=== PATIENT | male | born 1940 | race Caucasian/White ===

== ENCOUNTER 2020-04-28 13:32 | Outpatient (REF) | payer MEDICARE, SELFPAY ==
[2020-04-28 14:41] LABS: Eosinophils Absolute Auto 0.1 X10*3/uL (0.0-0.4); Eosinophils Percent Auto 0.8 % (0-4); MANUAL DIFF FLAG SCAN; PLT CLUMP 1; Red Cell Distribution Width 12.3 % (11.0-16.0); SCAN SMEAR FLAG 1
[2020-04-28 14:43] LABS: Basophils Percent Auto 0.2 % (0-2); Hemoglobin 11.1 g/dl (14.0-18.0); Imm Gran Abs Auto 0.03 X10*3/uL (0.00-0.03); Imm Gran Pct Auto 0.5 % (0.0-0.4); Lymphocytes Absolute Auto 1.5 X10*3/uL (1.2-4.9); Mean Corpuscular HGB Conc 33.6 g/dl (31.0-36.0); Mean Corpuscular Hemoglobin 33.3 pg (27.0-33.0); Mean Corpuscular Volume 99.1 fL (80-98); Mean Platelet Volume 10.6 fL (9.4-12.4); Monocytes Absolute Auto 0.8 X10*3/uL (0.1-1.2); Monocytes Percent Auto 12.5 % (2-11); Neutrophils Absolute Auto 3.7 X10*3/uL (2.0-8.3); Platelet Count 132 X10*3/uL (160-400); Red Blood Count 3.33 X10*6/uL (4.60-5.80)
[2020-04-28 15:22] LABS: Alanine Aminotransferase 24 U/L (0-40); Albumin Level 3.6 g/dL (3.5-5.0); Alkaline Phosphatase 55 U/L (39-117); Anion Gap 11 (12-20); Aspartate Amino Transferase 28 U/L (5-37); Bilirubin Total 0.5 mg/dL (0.0-1.0); Blood Urea Nitrogen 29 mg/dL (9-16); Calcium 8.5 mg/dL (8.4-10.2); Carbon Dioxide 26 mmol/L (22-29); Chloride 106 mmol/L (96-108); Estimated Glomerular Filt Rate 41; Glucose Random 93 mg/dL (60-115); Potassium 4.6 mmol/l (3.3-5.1); Sodium 138 mmol/L (135-145)
== END 2020-04-28 13:33 | disposition home or self-care (01) ==
LOC: HO.LAB 13:32
PROVIDERS: PCP Internal Medicine; Visit Provider Internal Medicine
DX: R19.7 Diarrhea, unspecified (principal)
CPT/HCPCS: 36415; 80053; 85025; 87635

== ENCOUNTER 2020-04-29 13:08 | Outpatient (REF) | payer MEDICARE, SELFPAY ==
[2020-04-29 13:50] LABS: Leukocytes Stool Qualitative NEGATIVE (NEGATIVE)
== END 2020-04-29 13:09 | disposition home or self-care (01) ==
LOC: HO.LNP 13:08
PROVIDERS: Visit Provider Internal Medicine
DX: R19.7 Diarrhea, unspecified (principal)
CPT/HCPCS: 87045; 87046; 87177; 87209; 89055

== ENCOUNTER 2020-06-22 10:27 | Outpatient (REF) | payer MEDICARE, SELFPAY ==
[2020-06-22 11:12] LABS: MANUAL DIFF FLAG NO
[2020-06-22 11:27] LABS: Basophils Percent Auto 0.3 % (0-2); Eosinophils Absolute Auto 0.1 X10*3/uL (0.0-0.4); Eosinophils Percent Auto 1.2 % (0-4); Hematocrit 27.6 % (42-52); Hemoglobin 9.5 g/dl (14.0-18.0); Imm Gran Abs Auto 0.01 X10*3/uL (0.00-0.03); Imm Gran Pct Auto 0.2 % (0.0-0.4); Lymphocytes Absolute Auto 2.4 X10*3/uL (1.2-4.9); Lymphocytes Percent Auto 40.7 % (20-40); Mean Corpuscular HGB Conc 34.4 g/dl (31.0-36.0); Mean Corpuscular Hemoglobin 31.4 pg (27.0-33.0); Mean Corpuscular Volume 91.1 fL (80-98); Mean Platelet Volume 9.7 fL (9.4-12.4); Monocytes Absolute Auto 0.8 X10*3/uL (0.1-1.2); Neutrophils Absolute Auto 2.7 X10*3/uL (2.0-8.3); Neutrophils Percent Auto 44.6 % (45-73); Platelet Count 237 X10*3/uL (160-400); Red Blood Count 3.03 X10*6/uL (4.60-5.80); Red Cell Distribution Width 13.2 % (11.0-16.0); White Blood Count 5.9 X10*3/uL (4.8-10.8)
[2020-06-22 11:55] LABS: Glucose Urine UA NEG (NEG); Leukocyte Esterase Urine NEG (NEG); Nitrite Urine NEG (NEG); Specific Gravity - Urine 1.015 (1.005-1.025); Urine Blood NEG (NEG); Urine Ketones 5 MG/DL (NEG); Urine Protein 1+ MG/DL (NEG-TRACE)
[2020-06-22 12:04] LABS: Appearance Urine CLEAR; Color Urine YELLOW
[2020-06-22 12:07] LABS: TSH reflex Free T4 4.72 mIU/mL (0.32-4.0)
[2020-06-22 12:08] LABS: Alanine Aminotransferase 30 U/L (0-40); Albumin Level 3.3 g/dL (3.5-5.0); Alkaline Phosphatase 60 U/L (39-117); Anion Gap 11 (12-20); Aspartate Amino Transferase 49 U/L (5-37); Bilirubin Total 0.5 mg/dL (0.0-1.0); Blood Urea Nitrogen 9 mg/dL (9-16); Calcium 7.9 mg/dL (8.4-10.2); Carbon Dioxide 22 mmol/L (22-29); Chloride 95 mmol/L (96-108); Cholesterol 130 mg/dL; Estimated Glomerular Filt Rate > 60; Glucose Fasting 92 mg/dL (60-99); HDL Cholesterol 31 mg/dL; LDL Cholesterol Calculated 77 mg/dl; Sodium 124 mmol/L (135-145); Total Protein 6.4 g/dL (6.5-8.0); Triglycerides 113 mg/dL
[2020-06-22 12:31] LABS: RBC Urine 0-2 /HPF (0); WBC Urine 0 /HPF (0-4)
[2020-06-22 12:32] LABS: Calcium Oxalate Crystals Urine TRACE /LPF
[2020-06-22 12:37] LABS: Folate 16.2 ng/mL (> or = 4.0); Vitamin B12 858 pg/mL (200-900)
[2020-06-22 12:39] LABS: Erythrocyte Sedimentation Rate 41 MM/HR (0-15)
[2020-06-22 12:43] LABS: Free T4 (Free Thyroxine) 0.99 ng/dL (0.71-1.85)
== END 2020-06-22 10:28 | disposition home or self-care (01) ==
LOC: HO.LAB 10:27
PROVIDERS: Visit Provider Internal Medicine
DX: E78.00 Pure hypercholesterolemia, unspecified (principal); I10 Essential (primary) hypertension; G62.9 Polyneuropathy, unspecified; I48.0 Paroxysmal atrial fibrillation; R35.0 Frequency of micturition
CPT/HCPCS: 36415; 80053; 80061; 81001; 81003; 82607; 82746; 84439; 84443; 85025; 85652

== ENCOUNTER 2020-07-20 14:06 | Outpatient (REF) | payer MEDICARE, SELFPAY ==
[2020-07-20 15:22] LABS: Basophils Percent Auto 0.4 % (0-2); Eosinophils Absolute Auto 0.2 X10*3/uL (0.0-0.4); Eosinophils Percent Auto 2.9 % (0-4); Hematocrit 28.7 % (42-52); Hemoglobin 9.7 g/dl (14.0-18.0); Imm Gran Abs Auto 0.01 X10*3/uL (0.00-0.03); Imm Gran Pct Auto 0.2 % (0.0-0.4); Lymphocytes Absolute Auto 2.5 X10*3/uL (1.2-4.9); MANUAL DIFF FLAG NO; Mean Corpuscular HGB Conc 33.8 g/dl (31.0-36.0); Mean Corpuscular Hemoglobin 30.4 pg (27.0-33.0); Mean Platelet Volume 9.4 fL (9.4-12.4); Monocytes Absolute Auto 0.7 X10*3/uL (0.1-1.2); Monocytes Percent Auto 13.2 % (2-11); Neutrophils Absolute Auto 2.2 X10*3/uL (2.0-8.3); Neutrophils Percent Auto 39.3 % (45-73); Platelet Count 238 X10*3/uL (160-400); Red Blood Count 3.19 X10*6/uL (4.60-5.80); Red Cell Distribution Width 13.2 % (11.0-16.0); White Blood Count 5.6 X10*3/uL (4.8-10.8)
[2020-07-20 15:39] LABS: Glucose Urine UA NEG (NEG); Leukocyte Esterase Urine NEG (NEG); Nitrite Urine NEG (NEG); Specific Gravity - Urine 1.015 (1.005-1.025); Urine Blood NEG (NEG); Urine Ketones 5 MG/DL (NEG); Urine Protein NEG (NEG-TRACE)
[2020-07-20 15:46] LABS: Appearance Urine CLEAR; Color Urine YELLOW
[2020-07-20 16:22] LABS: Alanine Aminotransferase 14 U/L (0-40); Albumin Level 3.7 g/dL (3.5-5.0); Alkaline Phosphatase 48 U/L (39-117); Anion Gap 12 (12-20); Aspartate Amino Transferase 24 U/L (5-37); Bilirubin Total 0.3 mg/dL (0.0-1.0); Blood Urea Nitrogen 10 mg/dL (9-16); Calcium 8.4 mg/dL (8.4-10.2); Carbon Dioxide 27 mmol/L (22-29); Chloride 96 mmol/L (96-108); Estimated Glomerular Filt Rate > 60; Glucose Random 66 mg/dL (60-115); Iron 37 mcg/dL (45-160); Percent Iron Saturation 16 % (15-50); Potassium 4.5 mmol/l (3.3-5.1); Sodium 130 mmol/L (135-145); Total Iron Binding Capacity 233 mcg/dL (228-428); Total Protein 6.5 g/dL (6.5-8.0); Unsaturated Iron Binding 196 ug/dL
[2020-07-20 16:24] LABS: Calcium 8.6 mg/dL (8.4-10.2); Magnesium 1.6 mg/dL (1.6-2.6); Phosphorus 5.3 mg/dL (2.7-4.5)
[2020-07-20 16:27] LABS: Sodium Urine Random < 20.0 mmol/L
[2020-07-20 16:44] LABS: TSH reflex Free T4 3.47 mIU/mL (0.32-4.0)
[2020-07-20 16:46] LABS: Osmolality Urine 341 mosm/kg (373-1093)
[2020-07-20 16:55] LABS: Folate 10.5 ng/mL (> or = 4.0); Vitamin B12 582 pg/mL (200-900)
== END 2020-07-20 14:07 | disposition home or self-care (01) ==
LOC: HO.LAB 14:06
PROVIDERS: Absent Provider Internal Medicine; PCP Internal Medicine; Visit Provider Internal Medicine Nephrology
DX: I13.0 Hypertensive heart and chronic kidney disease with heart failure and stage 1 through stage 4 chronic kidney disease, or unspecified chronic kidney disease (principal); N18.30 Chronic kidney disease, stage 3 unspecified; I50.22 Chronic systolic (congestive) heart failure; D63.1 Anemia in chronic kidney disease; E87.1 Hypo-osmolality and hyponatremia
CPT/HCPCS: 36415; 80053; 81003; 82310; 82607; 82746; 83540; 83735; 83935; 84100; 84300; 84443; 85025

== ENCOUNTER 2020-08-21 09:40 | Outpatient (REF) | payer MEDICARE, SELFPAY ==
[2020-08-21 10:49] LABS: Basophils Percent Auto 0.4 % (0-2); Eosinophils Absolute Auto 0.1 X10*3/uL (0.0-0.4); Eosinophils Percent Auto 2.2 % (0-4); Hematocrit 30.1 % (42-52); Hemoglobin 10.2 g/dl (14.0-18.0); Lymphocytes Absolute Auto 2.1 X10*3/uL (1.2-4.9); Lymphocytes Percent Auto 46.8 % (20-40); Mean Corpuscular HGB Conc 33.9 g/dl (31.0-36.0); Mean Corpuscular Hemoglobin 30.5 pg (27.0-33.0); Mean Corpuscular Volume 90.1 fL (80-98); Mean Platelet Volume 9.7 fL (9.4-12.4); Monocytes Absolute Auto 0.6 X10*3/uL (0.1-1.2); Monocytes Percent Auto 12.3 % (2-11); Neutrophils Absolute Auto 1.8 X10*3/uL (2.0-8.3); Neutrophils Percent Auto 38.3 % (45-73); Platelet Count 210 X10*3/uL (160-400); Red Blood Count 3.34 X10*6/uL (4.60-5.80); Red Cell Distribution Width 13.9 % (11.0-16.0); White Blood Count 4.6 X10*3/uL (4.8-10.8)
[2020-08-21 10:50] LABS: MANUAL DIFF FLAG NO
[2020-08-21 11:20] LABS: Alanine Aminotransferase 13 U/L (0-40); Albumin Level 3.8 g/dL (3.5-5.0); Alkaline Phosphatase 46 U/L (39-117); Anion Gap 12 (12-20); Aspartate Amino Transferase 22 U/L (5-37); Bilirubin Total 0.5 mg/dL (0.0-1.0); Blood Urea Nitrogen 14 mg/dL (9-16); Calcium 8.7 mg/dL (8.4-10.2); Carbon Dioxide 25 mmol/L (22-29); Chloride 100 mmol/L (96-108); Estimated Glomerular Filt Rate > 60; Glucose Random 86 mg/dL (60-115); Iron 112 mcg/dL (45-160); Percent Iron Saturation 45 % (15-50); Potassium 4.8 mmol/L (3.3-5.1); Sodium 132 mmol/L (135-145); Total Iron Binding Capacity 251 mcg/dL (228-428); Total Protein 6.5 g/dL (6.5-8.0); Unsaturated Iron Binding 139 ug/dL
[2020-08-21 11:33] LABS: Osmolality, Serum 280 mosm/kg (281-305)
== END 2020-08-21 09:41 | disposition home or self-care (01) ==
LOC: HO.LAB 09:40
PROVIDERS: PCP Internal Medicine; Visit Provider Internal Medicine
DX: D64.89 Other specified anemias (principal); E87.1 Hypo-osmolality and hyponatremia; N28.9 Disorder of kidney and ureter, unspecified
CPT/HCPCS: 36415; 80053; 83540; 83930; 85025

== ENCOUNTER → 2020-10-08 09:26 | Outpatient (CLI) | payer MEDICARE, SELFPAY | PROVIDERS: PCP Internal Medicine; Visit Provider Surgery | DX: K42.9 Umbilical hernia without obstruction or gangrene (principal); I48.0 Paroxysmal atrial fibrillation; Z79.02 Long term (current) use of antithrombotics/antiplatelets | CPT/HCPCS: 99202 ==

== ENCOUNTER 2020-10-30 10:26 | Outpatient (REF) | payer MEDICARE, SELFPAY ==
[2020-10-30 12:28] LABS: TSH reflex Free T4 3.15 uIU/mL (0.32-4.0)
[2020-10-30 12:31] LABS: Anion Gap 11 (12-20); Blood Urea Nitrogen 17 mg/dL (9-16); Calcium 8.7 mg/dL (8.4-10.2); Carbon Dioxide 26 mmol/L (22-29); Chloride 102 mmol/L (96-108); Estimated Glomerular Filt Rate > 60; Potassium 4.4 mmol/L (3.3-5.1); Sodium 135 mmol/L (135-145)
[2020-10-30 12:34] LABS: Osmolality Urine 559 mosm/kg (373-1093)
== END 2020-10-30 10:27 | disposition home or self-care (01) ==
LOC: HO.LAB 10:26
PROVIDERS: PCP Internal Medicine; Visit Provider Internal Medicine Nephrology
DX: I50.22 Chronic systolic (congestive) heart failure (principal); E87.1 Hypo-osmolality and hyponatremia
CPT/HCPCS: 36415; 80051; 82310; 82565; 83935; 84300; 84443; 84520

== ENCOUNTER 2020-11-03 07:19 | Day surgery (SDC) | payer MEDICARE, SELFPAY ==
--- NOTE | 2020-10-20 | ECG_ITS ---
Test Reason : PAF Blood Pressure : / mmHG Vent. Rate : 064 BPM Atrial Rate : 064 BPM P-R Int : 196 ms QRS Dur : 088 ms QT Int : 420 ms P-R-T Axes : 052 003 019 degrees QTc Int : 433 ms Normal sinus rhythm Possible Left atrial enlargement Septal infarct , age undetermined Abnormal ECG When compared with ECG of 12-AUG-2011 11:45, No significant change was found Referred By: Christin Perez Electronically Signed By:JOSE BAJWA
[2020-10-20 11:45] VITALS: BMI 21.7
[2020-10-20 11:50] VITALS: BP 144/70; PULSE 65; RESP 16; O2SAT 98
--- NOTE | 2020-10-20 12:03 | P.CONAN_ITS ---
Documented by User: Christin Perez 10/20/20 12:09 HPI - Anesthesia Eval Consult details Narrative: 79yo M for Umbilical hernia repair Xarelto for PAF PMFSH Active Problems Active Problems: All Active Problems (Updated 10/19/20 @ 09:11 by Radha Merida) Umbilical hernia (Acute) Chest pain of unknown etiology (Acute) Abdominal wall mass of periumbilical region (Acute) Gait instability (Acute) Postoperative intra-abdominal abscess (Acute) Hyponatremia (Acute) Anemia (Acute) Renal insufficiency (Acute) Anxiety (Acute) Frequency of urination (Acute) Benign prostatic hyperplasia with lower urinary tract symptoms (Acute) Macular degeneration, bilateral (Acute) Primary osteoarthritis of right knee (Acute) Lumbar degenerative disc disease (Acute) Neuropathy (Acute) Pure hypercholesterolemia (Acute) Benign essential hypertension (Acute) Paroxysmal atrial fibrillation (Acute) Past Medical History Medical History (Updated 11/03/20 @ 08:50 by Jennifer Wiseman) Abdominal wall mass of periumbilical region Anemia Anxiety Benign essential hypertension Benign prostatic hyperplasia with lower urinary tract symptoms Chest pain of unknown etiology Frequency of urination Gait instability Hyponatremia Lumbar degenerative disc disease Macular degeneration, bilateral Neuropathy On anticoagulant therapy Paroxysmal atrial fibrillation Postoperative intra-abdominal abscess Primary osteoarthritis of right knee Pure hypercholesterolemia Renal insufficiency SIADH (syndrome of inappropriate ADH production) Umbilical hernia Family History Family History Mother Hypertension Family history of problems with anesthesia: No Surgical History Surgical History History of appendectomy (~05/2020) History of arthroscopy of left knee (~12/2015) History of inguinal hernia repair Hx of colonoscopy Status post arthroscopic surgery of right knee (~03/2016) History of Problems with Anesthesia: No Social History Social History Are you a primary palliative care nurse practitioner to a significant other at home: No Do you presently have visiting nurse or other home services: No Alcohol intake: current Alcohol intake frequency: 3 or more drinks per day Smoking Status: Former smoker Smoking Quit Date: 50 yrs ago Second Hand Smoke Exposure: No Use of substances other than those prescribed or required for medical reasons: No Have you been hit, kicked, punched, or otherwise hurt by someone within the past year? If so, by whom?: No Advance Directives: No Advance Directives Information Provided: No Advance Directives on File: No Recently lost weight without trying: No Narrative Narrative: No recent illness. No CP/SOB with limited activity. Was going to the gym 6 days per week before appendectomy. Reports pushups daily. Meds Allergies Allergy/AdvReac Type Severity Reaction Status Date / Time atorvastatin [Lipitor] Allergy Severe face Verified 10/19/20 09:11 swelling amlodipine AdvReac Intermediate dizziness Verified 10/19/20 09:11 Pradaxa AdvReac Severe weakness, Uncoded 10/19/20 09:11 dyspnea Home Medications Medication Instructions Recorded Confirmed Last Taken Type qaibermoaiuc-tiksnsgd-fqnaal tablet 1 tab PO DAILY 04/28/20 10/20/20 Unknown History docusate sodium 100 mg capsule 100 mg PO BID PRN 07/23/20 10/20/20 Unknown History tamsulosin 0.4 mg capsule 0.4 mg PO DAILY 07/23/20 10/20/20 Unknown History torsemide 20 mg tablet 20 mg PO DAILY 07/23/20 10/20/20 Unknown History carvedilol 12.5 mg tablet 12.5 mg PO BID 10/08/20 11/03/20 11/03/20 History tjbc-bkwgy-bz4-tlq-ivh-utqd-sterols 1 cap PO DAILY 10/08/20 10/20/20 Unknown History 375 mg-100 mg-36 mg-54 mg capsule yefyoaij-ntm-pupze acid 300 1 tab PO DAILY 10/08/20 10/20/20 Unknown History mcg-lycopene 600 mcg-lutein 300 mcg tablet vitamins A,C,V-gysg-ufdlzt 14,320 1 cap PO BID 10/08/20 10/20/20 Unknown History unit-226 mg-200 unit capsule terazosin 1 cap PO BEDTIME 10/20/20 10/20/20 Unknown History Exam Exam Date and Time: October 20, 2020 1203 Height,Weight and Vital Signs: Height 5 ft 8 in Weight 64.864 kg Last Vital Signs Pulse 65 10/20/20 11:50 Resp 16 10/20/20 11:50 BP 144/70 H 10/20/20 11:50 Pulse Ox 98 10/20/20 11:50 Airway Mallampati Class: II TM Dist: >3cm Neck ROM: Full Partial: Upper Heart: RRR Lungs: CTAB Documented by User: Jennifer Wiseman 11/03/20 08:51 PMFSH Past Medical History Medical History (Updated 11/03/20 @ 08:50 by Jennifer Wiseman) Abdominal wall mass of periumbilical region Anemia Anxiety Benign essential hypertension Benign prostatic hyperplasia with lower urinary tract symptoms Chest pain of unknown etiology Frequency of urination Gait instability Hyponatremia Lumbar degenerative disc disease Macular degeneration, bilateral Neuropathy On anticoagulant therapy Paroxysmal atrial fibrillation Postoperative intra-abdominal abscess Primary osteoarthritis of right knee Pure hypercholesterolemia Renal insufficiency SIADH (syndrome of inappropriate ADH production) Umbilical hernia Family History Family History Mother Hypertension Family history of problems with anesthesia: No Surgical History Surgical History History of appendectomy (~05/2020) History of arthroscopy of left knee (~12/2015) History of inguinal hernia repair Hx of colonoscopy Status post arthroscopic surgery of right knee (~03/2016) History of Problems with Anesthesia: No Social History Social History Are you a primary palliative care nurse practitioner to a significant other at home: No Do you presently have visiting nurse or other home services: No Alcohol intake: current Alcohol intake frequency: 3 or more drinks per day Smoking Status: Former smoker Smoking Quit Date: 50 yrs ago Second Hand Smoke Exposure: No Use of substances other than those prescribed or required for medical reasons: No Have you been hit, kicked, punched, or otherwise hurt by someone within the past year? If so, by whom?: No Advance Directives: No Advance Directives Information Provided: No Advance Directives on File: No Recently lost weight without trying: No Meds Allergies Allergy/AdvReac Type Severity Reaction Status Date / Time atorvastatin [Lipitor] Allergy Severe face Verified 10/19/20 09:11 swelling amlodipine AdvReac Intermediate dizziness Verified 10/19/20 09:11 Pradaxa AdvReac Severe weakness, Uncoded 10/19/20 09:11 dyspnea Home Medications Medication Instructions Recorded Confirmed Last Taken Type ncdwnchlgkoo-czrqpzzn-mgabkl tablet 1 tab PO DAILY 04/28/20 10/20/20 Unknown History docusate sodium 100 mg capsule 100 mg PO BID PRN 07/23/20 10/20/20 Unknown History tamsulosin 0.4 mg capsule 0.4 mg PO DAILY 07/23/20 10/20/20 Unknown History torsemide 20 mg tablet 20 mg PO DAILY 07/23/20 10/20/20 Unknown History carvedilol 12.5 mg tablet 12.5 mg PO BID 10/08/20 11/03/20 11/03/20 History nhzz-ynels-rc1-krd-hxs-vmji-sterols 1 cap PO DAILY 10/08/20 10/20/20 Unknown History 375 mg-100 mg-36 mg-54 mg capsule bzomwkza-yqb-tqulk acid 300 1 tab PO DAILY 10/08/20 10/20/20 Unknown History mcg-lycopene 600 mcg-lutein 300 mcg tablet vitamins A,C,T-ebsg-ynrfql 14,320 1 cap PO BID 10/08/20 10/20/20 Unknown History unit-226 mg-200 unit capsule terazosin 1 cap PO BEDTIME 10/20/20 10/20/20 Unknown History Exam Height,Weight and Vital Signs: Vital Signs Temp Pulse Resp BP Pulse Ox 11/03/20 08:17 98.4 F 67 16 160/82 H 99 Pertinent Lab Results Pertinent Lab Results: Lab Results 10/20/20 10/20/20 10/20/20 Range/Units 12:32 12:32 12:32 WBC 4.0 L (4.8-10.8) X10*3/uL RBC 3.51 L (4.60-5.80) X10*6/uL Hgb 10.8 L (14.0-18.0) g/dl Hct 31.8 L (42-52) % MCV 90.6 (80-98) fL MCH 30.8 (27.0-33.0) pg MCHC 34.0 (31.0-36.0) g/dl RDW 12.6 (11.0-16.0) % Plt Count 157 L D (160-400) X10*3/uL MPV 9.5 (9.4-12.4) fL Immature Gran % (Auto) 0.0 (0.0-0.4) % Neut % (Auto) 39.6 L (45-73) % Lymph % (Auto) 37.5 (20-40) % Holmes % (Auto) 18.6 H (2-11) % Eos % (Auto) 3.8 (0-4) % Baso % (Auto) 0.5 (0-2) % Lymph # (Auto) 1.5 (1.2-4.9) X10*3/uL Holmes # (Auto) 0.7 (0.1-1.2) X10*3/uL Eos # (Auto) 0.2 (0.0-0.4) X10*3/uL Baso # (Auto) 0.0 (0.0-0.2) X10*3/uL Abs Immat Gran (auto) 0.00 (0.00-0.03) X10*3/uL Absolute Neuts (auto) 1.6 L (2.0-8.3) X10*3/uL Absolute Nucleated RBC 0.000 (0.0-0.012) X10*3/uL Nucleated RBC % (auto) 0.0 (0.0-0.2) /100WBC Sodium Cancelled 125 L Potassium Cancelled 4.5 Chloride Cancelled 94 L Carbon Dioxide Cancelled 26 Anion Gap Cancelled 10 L BUN 13 (9-16) mg/dL Creatinine 1.03 (0.5-1.4) mg/dL Estim Creat Clear Calc 52.4 Estimated GFR > 60 Fasting Glucose 83 (60-99) mg/dL Calcium 9.0 (8.4-10.2) mg/dL Iron 65 (45-160) mcg/dL TIBC 273 (228-428) mcg/dL % Saturation 24 (15-50) % Unsat Iron Binding 208 ug/dL Total Bilirubin 0.7 (0.0-1.0) mg/dL AST 25 (5-37) U/L ALT 14 (0-40) U/L Alkaline Phosphatase 54 (39-117) U/L Total Protein 6.7 (6.5-8.0) g/dL Albumin 3.8 (3.5-5.0) g/dL Triglycerides 60 mg/dL Cholesterol 114 mg/dL LDL Cholesterol, Calc 50 mg/dl HDL Cholesterol 52 D mg/dL Prostate Specific Ag 0.85 (<0.05-4.0) ng/mL TSH 3.30 (0.32-4.0) uIU/mL 10/30/20: Na 135 K 4.4 Cl 102 HC03 24 Anion gap 11 BUN 17 Cr 1.13 Airway Mallampati Class: II TM Dist: >3cm Neck ROM: Full Partial: Upper Heart: RRR Lungs: CTAB Assessment and Plan Assessment Anesthesia Assessment: Anesthesia Plan Discussed and Chart Reviewed Final Anesthetic Review NPO: Yes ASA Class: III Final Preanesthetic Review: No Changes in Pt Med Stat, Meds/Allgs Chart Reviewed, Consent Obtained/Reviewed and Anes Risks/Benef Reviewed Patient Risk: Intermediate Procedure Risk: Low Assessment/Block/Sedation in SS: Assess/Block/Sedation-SS Anesthetic Plan Anesthetic Plan: GA Disposition: Standard PACU
[2020-10-20 12:57] LABS: MANUAL DIFF FLAG NO
[2020-10-20 13:05] LABS: Basophils Percent Auto 0.5 % (0-2); Eosinophils Absolute Auto 0.2 X10*3/uL (0.0-0.4); Eosinophils Percent Auto 3.8 % (0-4); Hematocrit 31.8 % (42-52); Hemoglobin 10.8 g/dl (14.0-18.0); Lymphocytes Absolute Auto 1.5 X10*3/uL (1.2-4.9); Lymphocytes Percent Auto 37.5 % (20-40); Mean Corpuscular Hemoglobin 30.8 pg (27.0-33.0); Mean Corpuscular Volume 90.6 fL (80-98); Mean Platelet Volume 9.5 fL (9.4-12.4); Monocytes Absolute Auto 0.7 X10*3/uL (0.1-1.2); Monocytes Percent Auto 18.6 % (2-11); Neutrophils Absolute Auto 1.6 X10*3/uL (2.0-8.3); Neutrophils Percent Auto 39.6 % (45-73); Platelet Count 157 X10*3/uL (160-400); Red Blood Count 3.51 X10*6/uL (4.60-5.80); Red Cell Distribution Width 12.6 % (11.0-16.0)
[2020-10-20 13:26] LABS: Alanine Aminotransferase 14 U/L (0-40); Albumin Level 3.8 g/dL (3.5-5.0); Alkaline Phosphatase 54 U/L (39-117); Anion Gap 10 (12-20); Aspartate Amino Transferase 25 U/L (5-37); Bilirubin Total 0.7 mg/dL (0.0-1.0); Blood Urea Nitrogen 13 mg/dL (9-16); Carbon Dioxide 26 mmol/L (22-29); Chloride 94 mmol/L (96-108); Cholesterol 114 mg/dL; Creatinine Clr Calc Pharmacy 52.4; Estimated Glomerular Filt Rate > 60; Glucose Fasting 83 mg/dL (60-99); HDL Cholesterol 52 mg/dL; Iron 65 mcg/dL (45-160); LDL Cholesterol Calculated 50 mg/dl; Percent Iron Saturation 24 % (15-50); Potassium 4.5 mmol/L (3.3-5.1); Sodium 125 mmol/L (135-145); Total Iron Binding Capacity 273 mcg/dL (228-428); Total Protein 6.7 g/dL (6.5-8.0); Triglycerides 60 mg/dL; Unsaturated Iron Binding 208 ug/dL
[2020-10-20 13:44] LABS: Prostate Specific Antigen 0.85 ng/mL (<0.05-4.0)
[2020-11-03 08:17] VITALS: BP 160/82; PULSE 67; RESP 16; TEMP 36.9; O2SAT 99
[2020-11-03] MEDS: Lactated Ringers 1,000 ML 100 ML IVCONT (08:30)
--- NOTE | 2020-11-03 08:56 | MHC.SHP ---
Pre-Procedural Eval Section B Chief Complaint: Umbilical hernia Allergies: Allergies Allergy/AdvReac Type Severity Reaction Status Date / Time atorvastatin [Lipitor] Allergy Severe face Verified 10/19/20 09:11 swelling amlodipine AdvReac Intermediate dizziness Verified 10/19/20 09:11 Pradaxa AdvReac Severe weakness, Uncoded 10/19/20 09:11 dyspnea Plan I have reviewed the history and physical and performed a pertinent physical examination on my patient. No changes have occurred unless specified.
--- NOTE | 2020-11-03 09:59 | P.OP_ITS ---
Operative Note Operative Note Date of Service: 11/03/20 Narrative: Preop diagnosis: Umbilical hernia Postop diagnosis: Umbilical hernia Procedure: Repair of umbilical hernia Surgeon: Salma Sweeney MD operations administrative assistant: None The patient is an 80-year-old male with note of an umbilical hernia, reducible on the umbilicus just at the supraumbilical margin. In view of symptoms, he wanted to proceed with repair. He understood technique of repair as well as the associated risks, benefits and alternatives. He was brought to the operating room placed supine on the table under general anesthesia via laryngeal mask airway. The abdomen was prepped and draped in the usual sterile fashion. A surgical time-out was done. The patient received cefazolin 2 g IV preoperatively. I made a short incision at the supraumbilical margin using a blade 15 and this was carried down through the full-thickness of skin and subcutaneous fat with electrocautery. The hernia was immediately seen as the patient had a very thin amount of subcutaneous fat. I sharply dissected the hernia to define the fascial edges. I was able to define the fascial defect which was about 1.5 cm in diameter. There were no adhesions around this and the margins were clear. I then placed 2 ydfknf-nu-xkzbi Maxon -1 sutures to close the fascial defect. I then irrigated the area. I then reapposed the subcutaneous layer with Dexon 3-0 interrupted sutures. Skin closure was achieved with Dexon 4-0 subcuticular sutures. I infiltrated the area with Marcaine 0.5% for postop analgesia Steri-Strips and dressings were applied The procedure was then completed The patient tolerated procedure well. There were no complication noted. Initial and final counts of sponges and instruments were correct. Estimated blood loss was 1 cc. The patient was extubated without difficulty and transferred to the recovery room with stable vital signs.
[2020-11-03 10:05] VITALS: BP 115/58; PULSE 58; RESP 12; TEMP 36.7; O2SAT 100
--- NOTE | 2020-11-03 10:05 | PM.OP ---
Brief Operative Note Date of Service: 11/03/20 Pre-op diagnosis: Umbilical hernia Post-op diagnosis: same Procedure: Repair of umbilical hernia Surgeon: Cody Sweeney MD Anesthesia: GLMA Estimated blood loss (mL): 1 Pathology: none sent Condition: stable Disposition: PACU
[2020-11-03 10:10] VITALS: BP 121/63; PULSE 58; RESP 12; O2SAT 100
[2020-11-03 10:15] VITALS: BP 126/63; PULSE 58; RESP 12; O2SAT 100
[2020-11-03 10:20] VITALS: BP 139/77; PULSE 65; RESP 16; O2SAT 99
[2020-11-03 10:35] VITALS: BP 157/76; PULSE 64; RESP 16; TEMP 36.7; O2SAT 99
== END 2020-11-03 11:05 | disposition home or self-care (01) ==
PROVIDERS: PCP Internal Medicine; Visit Provider Surgery
PROC: (CPT 49585; principal; 2020-11-03 09:10)
DX: K42.9 Umbilical hernia without obstruction or gangrene (principal); I48.0 Paroxysmal atrial fibrillation; Z79.01 Long term (current) use of anticoagulants; I10 Essential (primary) hypertension; R26.9 Unspecified abnormalities of gait and mobility; G62.9 Polyneuropathy, unspecified; N28.9 Disorder of kidney and ureter, unspecified; E22.2 Syndrome of inappropriate secretion of antidiuretic hormone; Z79.899 Other long term (current) drug therapy; Z87.891 Personal history of nicotine dependence; Z88.8 Allergy status to other drugs, medicaments and biological substances
CPT/HCPCS: 49585; 36415; 80051; 80053; 80061; 83540; 84153; 84443; 85025; 93005; J0690; J1100; J2405; J3010

== ENCOUNTER → 2020-11-16 13:03 | Outpatient (BNVA) | payer MEDICARE, SELFPAY | PROVIDERS: PCP Internal Medicine; Visit Provider Surgery | DX: Z48.815 Encounter for surgical aftercare following surgery on the digestive system (principal); Z87.19 Personal history of other diseases of the digestive system | CPT/HCPCS: 99212 ==

== ENCOUNTER 2020-11-23 14:49 | Outpatient (REF) | payer MEDICARE, SELFPAY ==
[2020-11-23 15:58] LABS: Anion Gap 12 (12-20); Blood Urea Nitrogen 21 mg/dL (9-16); Calcium 8.8 mg/dL (8.4-10.2); Carbon Dioxide 25 mmol/L (22-29); Chloride 108 mmol/L (96-108); Estimated Glomerular Filt Rate 53; Phosphorus 3.8 mg/dL (2.7-4.5); Potassium 4.7 mmol/L (3.3-5.1); Sodium 140 mmol/L (135-145)
== END 2020-11-23 14:50 | disposition home or self-care (01) ==
LOC: HO.LAB 14:49
PROVIDERS: PCP Internal Medicine; Visit Provider Internal Medicine Nephrology
DX: E87.1 Hypo-osmolality and hyponatremia (principal); I12.9 Hypertensive chronic kidney disease with stage 1 through stage 4 chronic kidney disease, or unspecified chronic kidney disease; N18.9 Chronic kidney disease, unspecified
CPT/HCPCS: 36415; 80051; 82310; 82565; 84100; 84520

== ENCOUNTER 2021-02-22 10:14 | Outpatient (REF) | payer MEDICARE, SELFPAY ==
[2021-02-22 13:00] LABS: MANUAL DIFF FLAG NO
[2021-02-22 13:10] LABS: Glucose Urine UA NEG (NEG); Leukocyte Esterase Urine NEG (NEG); Nitrite Urine NEG (NEG); Urine Blood NEG (NEG); Urine Ketones NEG (NEG); Urine Protein TRACE MG/DL (NEG-TRACE)
[2021-02-22 13:12] LABS: Appearance Urine CLEAR; Color Urine YELLOW
[2021-02-22 13:16] LABS: Basophils Percent Auto 0.5 % (0-2); Eosinophils Absolute Auto 0.2 X10*3/uL (0.0-0.4); Eosinophils Percent Auto 4.3 % (0-4); Hematocrit 38.4 % (42-52); Hemoglobin 12.8 g/dl (14.0-18.0); Imm Gran Abs Auto 0.01 X10*3/uL (0.00-0.03); Imm Gran Pct Auto 0.2 % (0.0-0.4); Lymphocytes Absolute Auto 2.4 X10*3/uL (1.2-4.9); Lymphocytes Percent Auto 42.9 % (20-40); Mean Corpuscular HGB Conc 33.3 g/dl (31.0-36.0); Mean Corpuscular Hemoglobin 31.4 pg (27.0-33.0); Mean Corpuscular Volume 94.3 fL (80-98); Mean Platelet Volume 10.4 fL (9.4-12.4); Monocytes Absolute Auto 0.7 X10*3/uL (0.1-1.2); Monocytes Percent Auto 11.8 % (2-11); Neutrophils Absolute Auto 2.2 X10*3/uL (2.0-8.3); Neutrophils Percent Auto 40.3 % (45-73); Platelet Count 161 X10*3/uL (160-400); Red Blood Count 4.07 X10*6/uL (4.60-5.80); Red Cell Distribution Width 13.1 % (11.0-16.0); White Blood Count 5.5 X10*3/uL (4.8-10.8)
[2021-02-22 13:43] LABS: Alanine Aminotransferase 113 U/L (0-40); Alkaline Phosphatase 57 U/L (39-117); Anion Gap 12 (12-20); Aspartate Amino Transferase 151 U/L (5-37); Bilirubin Total 0.9 mg/dL (0.0-1.0); Blood Urea Nitrogen 15 mg/dL (9-16); Carbon Dioxide 26 mmol/L (22-29); Chloride 106 mmol/L (96-108); Cholesterol 144 mg/dL; Estimated Glomerular Filt Rate > 60; Glucose Fasting 76 mg/dL (60-99); HDL Cholesterol 53 mg/dL; LDL Cholesterol Calculated 78 mg/dl; Potassium 4.3 mmol/L (3.3-5.1); Sodium 140 mmol/L (135-145); Total Protein 7.4 g/dL (6.5-8.0); Triglycerides 68 mg/dL
[2021-02-22 14:05] LABS: TSH reflex Free T4 3.52 uIU/mL (0.32-4.0)
== END 2021-02-22 10:15 | disposition home or self-care (01) ==
LOC: HO.LAB 10:14
PROVIDERS: PCP Internal Medicine; Visit Provider Internal Medicine
DX: I10 Essential (primary) hypertension (principal); D64.89 Other specified anemias; N28.9 Disorder of kidney and ureter, unspecified; E78.00 Pure hypercholesterolemia, unspecified; I48.0 Paroxysmal atrial fibrillation; N40.1 Benign prostatic hyperplasia with lower urinary tract symptoms; R35.0 Frequency of micturition
CPT/HCPCS: 36415; 80053; 80061; 81003; 84443; 85025

== ENCOUNTER 2021-03-19 10:19 | Outpatient (REF) | payer MEDICARE, SELFPAY ==
[2021-03-19 12:16] LABS: Alanine Aminotransferase 174 U/L (0-40); Albumin Level 3.9 g/dL (3.5-5.0); Alkaline Phosphatase 60 U/L (39-117); Anion Gap 11 (12-20); Aspartate Amino Transferase 290 U/L (5-37); Bilirubin Total 0.7 mg/dL (0.0-1.0); Blood Urea Nitrogen 13 mg/dL (9-16); Calcium 9.3 mg/dL (8.4-10.2); Carbon Dioxide 27 mmol/L (22-29); Chloride 106 mmol/L (96-108); Estimated Glomerular Filt Rate > 60; Glucose Fasting 77 mg/dL (60-99); Potassium 4.4 mmol/L (3.3-5.1); Sodium 140 mmol/L (135-145); Total Protein 7.4 g/dL (6.5-8.0)
== END 2021-03-19 10:20 | disposition home or self-care (01) ==
LOC: HO.LAB 10:19
PROVIDERS: PCP Internal Medicine; Visit Provider Internal Medicine
DX: E78.00 Pure hypercholesterolemia, unspecified (principal); R74.01 Elevation of levels of liver transaminase levels
CPT/HCPCS: 36415; 80053

== ENCOUNTER → 2021-04-28 11:37 | Outpatient (BNVA) | payer MEDICARE, SELFPAY | PROVIDERS: PCP Internal Medicine; Referring Provider Internal Medicine; Visit Provider Surgery | DX: K43.9 Ventral hernia without obstruction or gangrene (principal) | CPT/HCPCS: 99212 ==

== ENCOUNTER 2021-05-21 09:50 | Outpatient (REF) | payer MEDICARE, SELFPAY ==
[2021-05-21 10:03] LABS: MANUAL DIFF FLAG NO
[2021-05-21 10:14] LABS: Basophils Percent Auto 0.6 % (0-2); Eosinophils Absolute Auto 0.3 X10*3/uL (0.0-0.4); Eosinophils Percent Auto 4.8 % (0-4); Hemoglobin 13.3 g/dl (14.0-18.0); Imm Gran Abs Auto 0.01 X10*3/uL (0.00-0.03); Imm Gran Pct Auto 0.2 % (0.0-0.4); Lymphocytes Absolute Auto 2.8 X10*3/uL (1.2-4.9); Lymphocytes Percent Auto 52.1 % (20-40); Mean Corpuscular HGB Conc 34.1 g/dl (31.0-36.0); Mean Corpuscular Volume 93.8 fL (80.0-98.0); Mean Platelet Volume 9.4 fL (9.4-12.4); Monocytes Absolute Auto 0.7 X10*3/uL (0.1-1.2); Monocytes Percent Auto 12.4 % (2-11); Neutrophils Absolute Auto 1.6 x10*3/uL (2.0-8.3); Neutrophils Percent Auto 29.9 % (45-73); Platelet Count 163 X10*3/uL (160-400); Red Blood Count 4.16 X10*6/uL (4.60-5.80); Red Cell Distribution Width 13.3 % (11.0-16.0); White Blood Count 5.4 X10*3/uL (4.8-10.8)
[2021-05-21 10:44] LABS: Alanine Aminotransferase 130 U/L (0-40); Albumin Level 3.7 g/dL (3.5-5.0); Alkaline Phosphatase 71 U/L (39-117); Anion Gap 9 (12-20); Aspartate Amino Transferase 164 U/L (5-37); Bilirubin Total 0.9 mg/dL (0.0-1.0); Blood Urea Nitrogen 13 mg/dL (9-16); Calcium 8.9 mg/dL (8.4-10.2); Carbon Dioxide 29 mmol/L (22-29); Chloride 102 mmol/L (96-108); Cholesterol 182 mg/dL; Estimated Glomerular Filt Rate > 60; Glucose Fasting 91 mg/dL (60-99); HDL Cholesterol 52 mg/dL; LDL Cholesterol Calculated 110 mg/dl; Potassium 4.1 mmol/L (3.3-5.1); Sodium 136 mmol/L (135-145); Total Protein 7.5 g/dL (6.5-8.0); Triglycerides 104 mg/dL
[2021-05-21 10:59] LABS: TSH reflex Free T4 2.91 uIU/mL (0.32-4.0); Vitamin D 25-OH Total 42.1 ng/mL (>30)
[2021-05-21 11:48] LABS: Appearance Urine CLEAR; Color Urine YELLOW; Glucose Urine UA NEG (NEG); Leukocyte Esterase Urine 2+ (NEG); Nitrite Urine NEG (NEG); PH 6.5 (5.0-8.0); UACC Culture Trigger YES; Urine Blood TRACE (NEG); Urine Ketones 5 MG/DL (NEG); Urine Protein TRACE MG/DL (NEG-TRACE)
[2021-05-21 12:03] LABS: Bacteria Urine TRACE /LPF; RBC Urine 0-2 /HPF (0); Squamous Epithelial Cell Urine TRACE /LPF
== END 2021-05-21 09:51 | disposition home or self-care (01) ==
LOC: HO.LAB 09:50
PROVIDERS: PCP Internal Medicine; Visit Provider Internal Medicine
DX: E78.00 Pure hypercholesterolemia, unspecified (principal); I10 Essential (primary) hypertension; D64.89 Other specified anemias; E55.9 Vitamin D deficiency, unspecified
CPT/HCPCS: 36415; 80053; 80061; 81001; 82306; 84443; 85025; 87086

== ENCOUNTER 2021-06-08 06:02 | Day surgery (SDC) | payer MEDICARE, SELFPAY ==
[2021-06-01 13:18] VITALS: BMI 21.4
--- NOTE | 2021-06-07 10:26 | P.CONAN_ITS ---
Documented by User: Christin Perez NP 06/07/21 10:28 HPI - Anesthesia Eval Consult details Narrative: 80yo M for Supraumbilical Hernia Repair s/p same 10/2020 with GA-LMA 5 Xarelto for PAF PMFSH Active Problems Active Problems: All Active Problems (Updated 06/01/21 @ 09:42 by Daniel Lehman MD) Bronchitis (Acute) Transaminitis (Acute) Elevated LFTs (Acute) Supraumbilical hernia (Acute) Umbilical hernia (Acute) SIADH (syndrome of inappropriate ADH production) (Acute) Umbilical hernia (Acute) Chest pain of unknown etiology (Acute) Abdominal wall mass of periumbilical region (Acute) Gait instability (Acute) Postoperative intra-abdominal abscess (Acute) Hyponatremia (Acute) Anemia (Acute) Renal insufficiency (Acute) Anxiety (Acute) Frequency of urination (Acute) Benign prostatic hyperplasia with lower urinary tract symptoms (Acute) Macular degeneration, bilateral (Acute) Primary osteoarthritis of right knee (Acute) Lumbar degenerative disc disease (Acute) Neuropathy (Acute) Pure hypercholesterolemia (Acute) Benign essential hypertension (Acute) Paroxysmal atrial fibrillation (Acute) Past Medical History Medical History Abdominal wall mass of periumbilical region Anemia Anxiety Benign essential hypertension Benign prostatic hyperplasia with lower urinary tract symptoms Chest pain of unknown etiology Elevated LFTs Frequency of urination Gait instability Hyponatremia Lumbar degenerative disc disease Macular degeneration, bilateral Neuropathy On anticoagulant therapy Paroxysmal atrial fibrillation Postoperative intra-abdominal abscess Primary osteoarthritis of right knee Pure hypercholesterolemia Renal insufficiency SIADH (syndrome of inappropriate ADH production) Supraumbilical hernia Umbilical hernia Umbilical hernia Family History Family History Mother Hypertension Family history of problems with anesthesia: No Surgical History Surgical History H/O umbilical hernia repair History of appendectomy (~05/2020) History of arthroscopy of left knee (~12/2015) History of inguinal hernia repair Hx of colonoscopy Status post arthroscopic surgery of right knee (~03/2016) History of Problems with Anesthesia: No Social History Social History Housing: House Are you a primary critical care unit manager to a significant other at home: No Do you presently have visiting nurse or other home services: No Alcohol intake: current Alcohol intake frequency: 0-2 drinks per day Alcohol type: wine Patient Tobacco Use Status: Former Tobacco user Quit Date: Second Hand Smoke Exposure: Yes Use of substances other than those prescribed or required for medical reasons: No Are you DNR?: No Advance Directives: No Advance Directives Information Provided: Yes Advance Directives on File: No service: Yes Current occupational status: retired Meds Allergies Allergy/AdvReac Type Severity Reaction Status Date / Time atorvastatin [Lipitor] Allergy Severe face Verified 06/08/21 06:37 swelling amlodipine AdvReac Intermediate dizziness Verified 06/08/21 06:37 Pradaxa AdvReac Severe weakness, Uncoded 06/01/21 09:28 dyspnea Home Medications Medication Instructions Recorded Confirmed Last Taken Type docusate sodium 100 mg capsule 100 mg PO BID PRN 07/23/20 06/01/21 Unknown History torsemide 20 mg tablet 20 mg PO DAILY 07/23/20 06/01/21 Unknown History xgga-iobtz-pu5-has-jau-wcre-sterols 1 cap PO DAILY 10/08/20 06/01/21 Unknown History 375 mg-100 mg-36 mg-54 mg capsule (Glucosamine Chondroitin PLUS) tamsulosin 0.4 mg capsule 0.8 mg PO BEDTIME cap 11/24/20 06/01/21 Unknown History vit C 250 mg-vit E 90 mg-zinc 40 1 tab PO DAILY 06/01/21 06/01/21 Unknown History mg-copper 1 ox-opnpcf-exlnsn capsule (PreserVision AREDS-2) Exam Exam Date and Time: June 07, 2021 1026 Height,Weight and Vital Signs: Height 5 ft 8 in Weight 63.957 kg Pertinent Lab Results Pertinent Lab Results: Laboratory Tests 05/21/21 05/21/21 10:00 10:00 WBC 5.4 Hgb 13.3 L Hct 39.0 L Plt Count 163 Sodium 136 Potassium 4.1 Chloride 102 Carbon Dioxide 29 BUN 13 Creatinine 1.13 Narrative Narrative: EKG 10/2020 Vent. Rate : 064 BPM ? ? Atrial Rate : 064 BPM ?? P-R Int : 196 ms? QRS Dur : 088 ms ? ? QT Int : 420 ms ? ? ? P-R-T Axes : 052 003 019 degrees ?? QTc Int : 433 ms ? Normal sinus rhythm Possible Left atrial enlargement Septal infarct , age undetermined Abnormal ECG When compared with ECG of 12-AUG-2011 11:45, No significant change was found Assessment and Plan Assessment Anesthesia Assessment: Chart Reviewed Final Anesthetic Review Family History of Problems with Anesthesia: No History of Problems with Anesthesia: No Documented by User: Lyndsey Garcia MD 06/08/21 07:29 [facility] Past Medical History Medical History Abdominal wall mass of periumbilical region Anemia Anxiety Benign essential hypertension Benign prostatic hyperplasia with lower urinary tract symptoms Chest pain of unknown etiology Elevated LFTs Frequency of urination Gait instability Hyponatremia Lumbar degenerative disc disease Macular degeneration, bilateral Neuropathy On anticoagulant therapy Paroxysmal atrial fibrillation Postoperative intra-abdominal abscess Primary osteoarthritis of right knee Pure hypercholesterolemia Renal insufficiency SIADH (syndrome of inappropriate ADH production) Supraumbilical hernia Umbilical hernia Umbilical hernia Family History Family History Mother Hypertension Surgical History Surgical History H/O umbilical hernia repair History of appendectomy (~05/2020) History of arthroscopy of left knee (~12/2015) History of inguinal hernia repair Hx of colonoscopy Status post arthroscopic surgery of right knee (~03/2016) Social History Social History Housing: House Are you a primary critical care unit manager to a significant other at home: No Do you presently have visiting nurse or other home services: No Alcohol intake: current Alcohol intake frequency: 0-2 drinks per day Alcohol type: wine Patient Tobacco Use Status: Former Tobacco user Quit Date: Second Hand Smoke Exposure: Yes Use of substances other than those prescribed or required for medical reasons: No Are you DNR?: No Advance Directives: No Advance Directives Information Provided: Yes Advance Directives on File: No service: Yes Current occupational status: retired Meds Allergies Allergy/AdvReac Type Severity Reaction Status Date / Time atorvastatin [Lipitor] Allergy Severe face Verified 06/08/21 06:37 swelling amlodipine AdvReac Intermediate dizziness Verified 06/08/21 06:37 Pradaxa AdvReac Severe weakness, Uncoded 06/01/21 09:28 dyspnea Home Medications Medication Instructions Recorded Confirmed Last Taken Type docusate sodium 100 mg capsule 100 mg PO BID PRN 07/23/20 06/01/21 Unknown History torsemide 20 mg tablet 20 mg PO DAILY 07/23/20 06/01/21 Unknown History qvzv-bhuto-la1-hoz-xbv-vyej-sterols 1 cap PO DAILY 10/08/20 06/01/21 Unknown History 375 mg-100 mg-36 mg-54 mg capsule (Glucosamine Chondroitin PLUS) tamsulosin 0.4 mg capsule 0.8 mg PO BEDTIME cap 11/24/20 06/01/21 Unknown History vit C 250 mg-vit E 90 mg-zinc 40 1 tab PO DAILY 06/01/21 06/01/21 Unknown History mg-copper 1 qg-vxocpk-dvcawl capsule (PreserVision AREDS-2) Exam Airway Mallampati Class: II TM Dist: >3cm Neck ROM: Full Partial: Upper Loose/Missing/Broken Teeth: Yes and Upper Heart: RRR Lungs: CTA Assessment and Plan Assessment Anesthesia Assessment: Anesthesia Plan Discussed Final Anesthetic Review NPO: Yes ASA Class: III Final Preanesthetic Review: Meds/Allgs Chart Reviewed, Consent Obtained/Reviewed and Anes Risks/Benef Reviewed Patient Risk: Intermediate Procedure Risk: Low Anesthetic Plan Anesthetic Plan: GA Disposition: Standard PACU
[2021-06-08] VITALS (10 sets, daily range): BP systolic 150–175; BP diastolic 76–90; PULSE 61–71; RESP 16–20; TEMP 36.5–36.8; O2SAT 95–100
[2021-06-08] MEDS: Lactated Ringers 1,000 ML 100 ML IVCONT (06:50)
--- NOTE | 2021-06-08 07:30 | HO.POSTANES ---
Post Anesthesia Evaluation Post Anesthesia Evaluation Vital Signs: Vital Signs Temp Pulse Resp BP Pulse Ox 06/08/21 06:45 98.2 F 65 20 160/85 H 98 Anesthesia: General
--- NOTE | 2021-06-08 07:38 | MHC.SHP ---
Pre-Procedural Eval Section A Date of Service: 06/08/21 Section B Chief Complaint: Supraumbilical hernia Allergies: Allergies Allergy/AdvReac Type Severity Reaction Status Date / Time atorvastatin [Lipitor] Allergy Severe face Verified 06/08/21 06:37 swelling amlodipine AdvReac Intermediate dizziness Verified 06/08/21 06:37 Pradaxa AdvReac Severe weakness, Uncoded 06/01/21 09:28 dyspnea Plan I have reviewed the history and physical and performed a pertinent physical examination on my patient. No changes have occurred unless specified.
--- NOTE | 2021-06-08 07:59 | P.OP_ITS ---
Operative Note Operative Note Date of Service: 06/08/21 Narrative: Preop diagnosis: Supraumbilical hernia Postop diagnosis: The same Procedure: Repair of a supraumbilical hernia with Ventralex mesh Surgeon: Cody Sweeney MD assistant manager quality management: JOE Schilling The patient is an 80-year-old male with note of a supraumbilical mass, reducible consistent with a hernia. He under to the technique need of repair with possible mesh placement. He was aware of the risks benefits and alternatives and wanted to proceed. He was brought to the operating room placed supine on the table under general anesthesia via laryngeal mask airway. The abdomen is prepped and draped in the usual sterile fashion. A surgical time-out was done. The patient received cefazolin 2 g IV preoperatively . I infiltrated the planned line of the incision with lidocaine 1%. I made a short midline incision above the umbilicus blade 15 and this was carried down through the full-thickness of skin subcutaneous fat with electrocautery. We continued to dissect down to the fascia until were able to visualize the defect. The fascial defect was about 2.5 cm in diameter. No adhesions surrounding this. There were no bowel loops adherent to the edges. I then proceeded to position a small-sized Ventralex mesh to cover the entire hernia. This was under the fascia and was secured with Prolene 2 sutures through each side of the fascia using the Prolene straps on both sides. The Prolene straps were then trimmed flush on the fascial level. I then closed the fascia with a iunbmu-mk-zsljy Maxon 1 stitch. I irrigated the area. I reapposed the subcutaneous layer with Dexon 3-0 interrupted sutures. Skin closure was achieved with Dexon 4-0 subcuticular running stitch. I infiltrated the area with Marcaine 0.5% for postop analgesia. Steri-Strips and dressings were applied. The procedure was then completed The patient tolerated the procedure well. There were no complications noted. Initial and final counts of sponges and instruments were correct. Estimated blood loss was about 1 cc . The patient was extubated without difficulty and transferred to the recovery room with stable vital signs.
[2021-06-08] MEDS: oxyCODONE HCl Immed Release 5 MG TABLET PO (08:37)
[2021-06-08] MEDS: fentaNYL citrate/PF 100 MCG/2 ML VIAL 25 MCG IVPUSH ×2 (08:54→08:59)
== END 2021-06-08 09:54 | disposition home or self-care (01) ==
PROVIDERS: PCP Internal Medicine; Visit Provider Surgery
PROC: (CPT 49560; principal; 2021-06-08 07:30)
DX: K43.9 Ventral hernia without obstruction or gangrene (principal); N28.9 Disorder of kidney and ureter, unspecified; I10 Essential (primary) hypertension; D64.9 Anemia, unspecified; E78.00 Pure hypercholesterolemia, unspecified; E22.2 Syndrome of inappropriate secretion of antidiuretic hormone; I48.0 Paroxysmal atrial fibrillation; Z79.01 Long term (current) use of anticoagulants; Z79.899 Other long term (current) drug therapy; Z88.8 Allergy status to other drugs, medicaments and biological substances; Z87.891 Personal history of nicotine dependence
CPT/HCPCS: 49560; 49568; C1781; J0690; J1100; J1885; J2405; J3010

== ENCOUNTER → 2021-06-21 08:52 | Outpatient (BNVA) | payer MEDICARE, SELFPAY | PROVIDERS: PCP Internal Medicine; Referring Provider Internal Medicine; Visit Provider Surgery | DX: Z48.815 Encounter for surgical aftercare following surgery on the digestive system (principal); Z87.19 Personal history of other diseases of the digestive system | CPT/HCPCS: 99212 ==

== ENCOUNTER 2021-08-12 08:14 | Outpatient (REF) | payer MEDICARE, SELFPAY ==
--- NOTE | ~2021-08-12 | US_ITS ---
EXAMINATION: US ABDOMEN COMPLETE CLINICAL INFORMATION: Elevation of levels of liver transaminase levels. COMPARISON: CT abdomen and pelvis 04/25/2013. TECHNIQUE: Real-time imaging of the abdominal viscera. FINDINGS: Patient is nonfasting. PANCREAS: The pancreas is partially visualized with the body of the pancreas appearing homogeneous. The head and the tail are obscured by overlying gas. ABDOMINAL AORTA: The proximal, mid, and distal segments are normal in caliber. INFERIOR VENA CAVA: Visualized portions are normal. LIVER: Normal. The liver is normal in size. The liver contour is normal. Parenchymal echogenicity is normal. No focal hepatic lesion. There is no intrahepatic biliary duct dilatation seen. Normal hepatopedal flow seen in the middle portal vein. GALLBLADDER: The gallbladder is physiologically distended without evidence of stones, sludge, polyps, wall thickening or pericholecystic fluid. COMMON BILE DUCT: Normal in caliber measuring 0.3 cm in diameter. RIGHT KIDNEY: Normal. No hydronephrosis. No renal calculi or focal parenchymal lesions. The kidney measures 11.1 cm in maximum dimension. LEFT KIDNEY: Normal. No hydronephrosis. No renal calculi or focal parenchymal lesions. The kidney measures 10.6 cm in maximum dimension. SPLEEN: Normal. The spleen measures 9.7 cm in maximum dimension. FREE FLUID: None. US/US abdomen complete IMPRESSION: No echogenic stones seen. However, the gallbladder wall thickness is 0.40 cm. No tenderness in right upper quadrant. No pericholecystic fluid collection. The liver is unremarkable. The rest of the abdomen appears unremarkable.
== END 2021-08-12 08:15 | disposition home or self-care (01) ==
LOC: HO.US 08:14
PROVIDERS: Visit Provider Internal Medicine
DX: R74.01 Elevation of levels of liver transaminase levels (principal); R79.89 Other specified abnormal findings of blood chemistry
CPT/HCPCS: 76700

== ENCOUNTER 2021-09-21 09:15 | Outpatient (REF) | payer MEDICARE, SELFPAY ==
[2021-09-21 09:33] LABS: MANUAL DIFF FLAG NO
[2021-09-21 10:23] LABS: Basophils Percent Auto 0.7 % (0-2); Eosinophils Absolute Auto 0.5 X10*3/uL (0.0-0.4); Eosinophils Percent Auto 10.5 % (0-4); Hematocrit 43.6 % (42.0-52.0); Hemoglobin 14.4 g/dl (14.0-18.0); Imm Gran Abs Auto 0.01 X10*3/uL (0.00-0.03); Imm Gran Pct Auto 0.2 % (0.0-0.4); Lymphocytes Absolute Auto 2.3 X10*3/uL (1.2-4.9); Lymphocytes Percent Auto 51.1 % (20-40); Mean Corpuscular Hemoglobin 32.8 pg (27.0-33.0); Mean Corpuscular Volume 99.3 fL (80.0-98.0); Mean Platelet Volume 10.5 fL (9.4-12.4); Monocytes Absolute Auto 0.5 X10*3/uL (0.1-1.2); Monocytes Percent Auto 11.4 % (2-11); Neutrophils Absolute Auto 1.2 x10*3/uL (2.0-8.3); Neutrophils Percent Auto 26.1 % (45-73); Platelet Count 133 X10*3/uL (160-400); Red Blood Count 4.39 X10*6/uL (4.60-5.80); White Blood Count 4.6 X10*3/uL (4.8-10.8)
[2021-09-21 10:48] LABS: Alanine Aminotransferase 44 U/L (0-40); Albumin Level 3.7 g/dL (3.5-5.0); Alkaline Phosphatase 59 U/L (39-117); Anion Gap 11 (12-20); Aspartate Amino Transferase 69 U/L (5-37); Bilirubin Total 0.5 mg/dL (0.0-1.0); Blood Urea Nitrogen 16 mg/dL (9-16); Calcium 8.8 mg/dL (8.4-10.2); Carbon Dioxide 28 mmol/L (22-29); Chloride 105 mmol/L (96-108); Cholesterol 195 mg/dL; Estimated Glomerular Filt Rate 60; Glucose Fasting 82 mg/dL (60-99); HDL Cholesterol 55 mg/dL; LDL Cholesterol Calculated 120 mg/dl; Potassium 4.3 mmol/L (3.3-5.1); Sodium 140 mmol/L (135-145); Triglycerides 103 mg/dL
[2021-09-21 10:53] LABS: Appearance Urine CLEAR; Color Urine YELLOW; Glucose Urine UA NEG (NEG); Leukocyte Esterase Urine TRACE (NEG); Nitrite Urine NEG (NEG); UACC Culture Trigger YES; Urine Blood NEG (NEG); Urine Ketones NEG (NEG); Urine Protein NEG (NEG-TRACE)
[2021-09-21 11:08] LABS: Bacteria Urine TRACE /LPF; Squamous Epithelial Cell Urine TRACE /LPF
[2021-09-21 11:09] LABS: TSH reflex Free T4 3.52 uIU/mL (0.32-4.0); Vitamin D 25-OH Total 40.6 ng/mL (>30)
== END 2021-09-21 09:16 | disposition home or self-care (01) ==
LOC: HO.LAB 09:15
PROVIDERS: PCP Internal Medicine; Visit Provider Internal Medicine
DX: E78.00 Pure hypercholesterolemia, unspecified (principal); E55.9 Vitamin D deficiency, unspecified; I10 Essential (primary) hypertension
CPT/HCPCS: 36415; 80053; 80061; 81001; 82306; 84443; 85025; 87086

== ENCOUNTER 2022-01-17 10:12 | Outpatient (REF) | payer MEDICARE, SELFPAY ==
--- NOTE | ~2022-01-17 | XR_ITS ---
EXAMINATION: XR SHOULDER, LEFT CLINICAL INFORMATION: Left shoulder pain COMPARISON: None TECHNIQUE: AP external rotation, Grashey, scapular Y, and axillary views of the left shoulder. FINDINGS: Mild glenohumeral joint space narrowing with subchondral sclerosis and small glenoid rim marginal osteophytes. Preserved acromiohumeral interval. No periarticular soft tissue calcifications. AC joint is congruent and intact with subchondral sclerosis and small osteophytes. Chronic/healed fractures of the posterior left third and fourth ribs noted. Visualized left lung is grossly clear. XR/XR shoulder LT min 2V IMPRESSION: 1. No acute osseous injury. 2. Mild glenohumeral joint osteoarthritis and mild acromioclavicular arthropathy.
[2022-01-17 10:26] LABS: MANUAL DIFF FLAG NO
[2022-01-17 10:56] LABS: Basophils Percent Auto 0.9 % (0-2); Eosinophils Absolute Auto 0.3 X10*3/uL (0.0-0.4); Hemoglobin 14.6 g/dl (14.0-18.0); Imm Gran Abs Auto 0.01 X10*3/uL (0.00-0.03); Imm Gran Pct Auto 0.2 % (0.0-0.4); Lymphocytes Absolute Auto 1.9 X10*3/uL (1.2-4.9); Lymphocytes Percent Auto 41.7 % (20-40); Mean Corpuscular Volume 97.3 fL (80.0-98.0); Monocytes Absolute Auto 0.5 X10*3/uL (0.1-1.2); Monocytes Percent Auto 11.1 % (2-11); Neutrophils Absolute Auto 1.8 x10*3/uL (2.0-8.3); Neutrophils Percent Auto 40.1 % (45-73); Platelet Count 157 X10*3/uL (160-400); Red Blood Count 4.42 X10*6/uL (4.60-5.80); Red Cell Distribution Width 12.2 % (11.0-16.0); White Blood Count 4.5 X10*3/uL (4.8-10.8)
[2022-01-17 11:36] LABS: Alanine Aminotransferase 32 U/L (0-40); Albumin Level 4.2 g/dL (3.5-5.0); Alkaline Phosphatase 63 U/L (39-117); Anion Gap 10 (12-20); Aspartate Amino Transferase 55 U/L (5-37); Bilirubin Total 0.4 mg/dL (0.0-1.0); Blood Urea Nitrogen 15 mg/dL (9-16); Calcium 9.1 mg/dL (8.4-10.2); Carbon Dioxide 29 mmol/L (22-29); Chloride 105 mmol/L (96-108); Cholesterol 204 mg/dL; Estimated Glomerular Filt Rate 59; Glucose Fasting 89 mg/dL (60-99); HDL Cholesterol 60 mg/dL; LDL Cholesterol Calculated 124 mg/dl; Potassium 4.7 mmol/L (3.3-5.1); Sodium 139 mmol/L (135-145); Total Protein 7.7 g/dL (6.5-8.0); Triglycerides 102 mg/dL
[2022-01-17 12:01] LABS: TSH reflex Free T4 3.09 uIU/mL (0.32-4.0); Vitamin D 25-OH Total 46.1 ng/mL (>30)
== END 2022-01-17 10:13 | disposition home or self-care (01) ==
LOC: HO.XRAY 10:12
PROVIDERS: PCP Internal Medicine; Visit Provider Internal Medicine
DX: M25.512 Pain in left shoulder (principal); E78.00 Pure hypercholesterolemia, unspecified; E55.9 Vitamin D deficiency, unspecified; I10 Essential (primary) hypertension
CPT/HCPCS: 36415; 73030; 80053; 80061; 82306; 84443; 85025

== ENCOUNTER 2022-05-09 09:54 | Outpatient (REF) | payer MEDICARE, SELFPAY ==
[2022-05-09 10:10] LABS: MANUAL DIFF FLAG NO
[2022-05-09 10:26] LABS: Basophils Percent Auto 0.4 % (0-2); Eosinophils Absolute Auto 0.3 X10*3/uL (0.0-0.4); Eosinophils Percent Auto 5.7 % (0-4); Hemoglobin 14.2 g/dl (14.0-18.0); Imm Gran Abs Auto 0.01 X10*3/uL (0.00-0.03); Imm Gran Pct Auto 0.2 % (0.0-0.4); Lymphocytes Absolute Auto 1.9 X10*3/uL (1.2-4.9); Lymphocytes Percent Auto 39.4 % (20-40); Mean Corpuscular HGB Conc 33.8 g/dl (31.0-36.0); Mean Corpuscular Hemoglobin 32.2 pg (27.0-33.0); Mean Corpuscular Volume 95.2 fL (80.0-98.0); Mean Platelet Volume 9.9 fL (9.4-12.4); Monocytes Absolute Auto 0.6 X10*3/uL (0.1-1.2); Monocytes Percent Auto 11.6 % (2-11); Neutrophils Absolute Auto 2.1 x10*3/uL (2.0-8.3); Neutrophils Percent Auto 42.7 % (45-73); Platelet Count 170 X10*3/uL (160-400); Red Blood Count 4.41 X10*6/uL (4.60-5.80); Red Cell Distribution Width 11.6 % (11.0-16.0); White Blood Count 4.9 X10*3/uL (4.8-10.8)
[2022-05-09 10:35] LABS: Appearance Urine Clear; Color Urine Dark Yellow; Glucose Urine UA Negative (Negative); Leukocyte Esterase Urine Small (1+) (Negative); Nitrite Urine Negative (Negative); UMIC TRIGGER UACC YES; Urine Blood Negative (Negative); Urine Ketones Trace mg/dL (Negative); Urine Protein 30 (1+) mg/dL (Neg-Trace)
[2022-05-09 11:02] LABS: Alanine Aminotransferase 26 U/L (0-40); Albumin Level 4.1 g/dL (3.5-5.0); Alkaline Phosphatase 54 U/L (39-117); Anion Gap 13 (12-20); Aspartate Amino Transferase 35 U/L (5-37); Bilirubin Total 0.7 mg/dL (0.0-1.0); Blood Urea Nitrogen 18 mg/dL (9-16); Calcium 9.2 mg/dL (8.4-10.2); Carbon Dioxide 29 mmol/L (22-29); Chloride 103 mmol/L (96-108); Cholesterol 188 mg/dL; Estimated Glomerular Filt Rate > 60; Glucose Fasting 89 mg/dL (60-99); HDL Cholesterol 55 mg/dL; LDL Cholesterol Calculated 116 mg/dl; Potassium 4.5 mmol/L (3.3-5.1); Sodium 140 mmol/L (135-145); Total Protein 7.3 g/dL (6.5-8.0); Triglycerides 88 mg/dL
[2022-05-09 11:20] LABS: Bacteria Urine None Seen (None Seen); Hyaline Casts Urine 0-2 /LPF (0-2); Squamous Epithelial Cell Urine 0-2 /HPF (0-2); UACC Culture Trigger YES; WBC Urine 0-5 /HPF (0-5)
[2022-05-09 11:29] LABS: TSH reflex Free T4 4.01 uIU/mL (0.32-4.0); Vitamin D 25-OH Total 66.7 ng/mL (>30)
[2022-05-09 12:19] LABS: Free T4 (Free Thyroxine) 0.97 ng/dL (0.71-1.85)
== END 2022-05-09 09:55 | disposition home or self-care (01) ==
LOC: HO.LAB 09:54
PROVIDERS: PCP Internal Medicine; Visit Provider Internal Medicine
DX: E78.00 Pure hypercholesterolemia, unspecified (principal); E55.9 Vitamin D deficiency, unspecified; I10 Essential (primary) hypertension
CPT/HCPCS: 36415; 80053; 80061; 81001; 82306; 84439; 84443; 85025; 87086

== ENCOUNTER 2022-06-16 10:55 | Outpatient (REF) | payer MEDICARE, SELFPAY ==
[2022-06-16 12:40] LABS: Anion Gap 11 (12-20); Blood Urea Nitrogen 15 mg/dL (9-16); Calcium 8.9 mg/dL (8.4-10.2); Carbon Dioxide 29 mmol/L (22-29); Chloride 101 mmol/L (96-108); Estimated Glomerular Filt Rate > 60; Potassium 4.6 mmol/L (3.3-5.1); Sodium 136 mmol/L (135-145)
== END 2022-06-16 10:56 | disposition home or self-care (01) ==
LOC: HO.LAB 10:55
PROVIDERS: PCP Internal Medicine; Visit Provider Internal Medicine Nephrology
DX: E87.1 Hypo-osmolality and hyponatremia (principal)
CPT/HCPCS: 36415; 80051; 82310; 82565; 84520

== ENCOUNTER 2023-04-05 15:37 | Outpatient (AMB) | payer MEDICARE, SELFPAY ==
[2023-04-05 15:39] VITALS: BP 122/80; PULSE 66; O2SAT 97; BMI 20.4
--- NOTE | 2023-04-05 15:39 | A.OFFPC_ITS ---
Vital Signs 04/05/23 15:39 Height 5 ft 8 in Weight 134 lb 8 oz BMI 20.4 BP 122/80 Blood Pressure Location Lt brachial Position Sitting Pulse 66 Pulse Source Pulse Oximeter Pulse Oximetry (%) 97 Oxygen Delivery Method Room Air Intake Visit Reasons: ANNUAL PHYSICAL Return To Service Inspector Required: No Accompanied by: Self / Same As Patient Allergies atorvastatin [Lipitor] Allergy (Severe, Verified 04/05/23 16:18) face swelling amlodipine Adverse Reaction (Intermediate, Verified 04/05/23 16:18) dizziness Pradaxa Adverse Reaction (Severe, Uncoded 04/05/23 16:18) weakness, dyspnea Medication List - Last Reconciled 04/05/23 by Daniel Lehman MD apixaban (Eliquis) 5 mg PO BID carvedilol 12.5 mg PO BID ferrous sulfate 325 mg PO QAM cccs-caqqj-lw7-ela-vln-vgbb-st 142-427-25-54 mg (Glucosamine Chondroitin PLUS) 1 cap PO DAILY pregabalin 100 mg PO BID 30 days sodium chloride 1,000 mg PO BID tamsulosin 0.8 mg PO BEDTIME vit C,Y-Ym-cfdkz-lutein-zeaxan 250-90-40-1 mg (PreserVision AREDS-2) 1 tab PO DAILY Tobacco use date assessed: 04/05/23 Fall risk assessment: No Falls in past year Last assessed Fall Risk: 04/05/23 Dental Screening Dental Screen Date: 04/05/23 Did you have a dental visit in the last 12 months?: No Did you have a dental problem in the last 6 months where you did not have access to dental care?: No Was dental information given to patient?: No HPI ANNUAL PHYSICAL HPI Details Patient comes in today his annual physical examination Patient has not been for his follow-up since May 2022 - states that he has been busy taking care of his , who has Alzheimer's dementia, and he finally had to put her into a long-term when her cognitive dysfunction got significantly worse lately States that he currently feels okay He denies any headaches or dizziness Denies any chest pains, no shortness of breath No nausea / vomiting, no abdominal pain No change in bowel habits noted Denies any acute urinary symptoms Needs his Eliquis Rx refilled Patient has no follow-up labs done recently He last had his repeat colonoscopy done with Dr. Marie in 2012 and at that time, he was advised that unless he has a particular reason to, he no longer needs a [place] follow-up colonoscopy afterwards FORMERLY [facility], [facility] Medical History (Updated 04/06/23 @ 05:02 by Daniel Lehman MD) Postherpetic neuralgia Elevated LFTs Supraumbilical hernia Umbilical hernia SIADH (syndrome of inappropriate ADH production) On anticoagulant therapy Umbilical hernia Chest pain of unknown etiology Abdominal wall mass of periumbilical region Gait instability Postoperative intra-abdominal abscess Hyponatremia Anemia Renal insufficiency Anxiety Frequency of urination Benign prostatic hyperplasia with lower urinary tract symptoms Macular degeneration, bilateral Primary osteoarthritis of right knee Lumbar degenerative disc disease Neuropathy Pure hypercholesterolemia Benign essential hypertension Paroxysmal atrial fibrillation Surgical History (Updated 04/05/23 @ 16:26 by Daniel Lehman MD) History of hernia repair H/O umbilical hernia repair Hx of colonoscopy History of appendectomy (~05/2020) Status post arthroscopic surgery of right knee (~03/2016) History of arthroscopy of left knee (~12/2015) History of inguinal hernia repair Family History Mother Hypertension Social History Housing: House Are you a primary home care giver to a significant other at home: No Do you presently have visiting nurse or other home services: No Alcohol intake: current Alcohol intake frequency: 0-2 drinks per day Alcohol type: wine Patient Tobacco Use Status: Former Tobacco user Quit Date: Tobacco use type: Cigarette e-Cigarette/Vaping Use: Never Used Second Hand Smoke Exposure: Yes service: Yes Current occupational status: retired Cognitive needs: No Hearing needs: No Vision needs: No Questionnaire PHQ-9 Over the last 2 weeks, how often have you been bothered by any of the following problems? 1. Little interest or pleasure in doing things: not at all 2. Feeling down, depressed, or hopeless: not at all 3. Trouble falling or staying asleep, or sleeping too much: not at all 4. Feeling tired or having little energy: not at all 5. Poor appetite or overeating: not at all 6. Feeling bad about yourself - or that you are a failure or have let yourself or your family down: not at all 7. Trouble concentrating on things, such as reading the newspaper or watching television: not at all 8. Moving or speaking so slowly that other people could have noticed. Or the opposite - being so fidgety or restless that you have been moving around a lot more than usual: not at all 9. Thoughts that you would be better off or of hurting yourself in some way: not at all Total score: 0 Depression Screening Interpretation: Negative 66077 - PHQ-9 Billing: Yes Source: Developed by Drs. Cosme Evans, Shea Cowan, Lobo Franks and colleagues, with an educational yasmin from [employer]. Thrive Questionnaire Date Thrive assessed: 04/05/23 I am a: Patient What is your living situation today?: I have a steady place to live Within the past 12 months, did the food you bought not last and you didn't have the money to get more?: Never true Within the past 12 months, did you worry whether your food would run out before you got money to buy more?: Never true Do you have trouble paying for medicines?: No Do you have trouble getting transportation to medical appointments?: No Do you have trouble paying your heating and electricity bill?: No Do you have trouble taking care of your child, family member or friend?: No Do you have trouble with day-to-day activities such as bathing, preparing meals, shopping, managing finances, etc.?: No Are you currently unemployed and looking for a job?: No Are you interested in more education?: No Please select the resources that you would like help with: None Currently or been in a relationship where the following occur: no concerns reported AUDIT C Alcohol Use Questionnaire (AUDIT-C) 1. How often do you have a drink containing alcohol?: 4 or more times a week 2. How many drinks containing alcohol do you have on a typical day when you are drinking?: 1 or 2 3. How often do you have six or more drinks on one occasion?: Never Total Score: 4 Score Reviewed/Action Taken: Yes HUSEYIN-7 AMB Questionnaire HUSEYIN-7 Date HUSEYIN - 7 assessed: 04/05/23 Feeling nervous, anxious, or on edge: 0 = Not at all Not being able to stop or control worryin = Not at all Worrying too much about different things: 0 = Not at all Trouble relaxin = Not at all Being so restless that it is hard to sit still: 0 = Not at all Becoming easily annoyed or irritable: 0 = Not at all Feeling afraid as if something awful might happen: 0 = Not at all Total HUSEYIN-7 score (0-4 normal; 5-9 mild; 10-14 moderate; 15-21 severe): 0 Source: Developed by Drs. Cosme Evans, Shea Cowan, Lobo Franks and colleagues, with an educational yasmin from [employer]. Review of Systems Const Denies chills, Denies fatigue, Denies fever(s), Denies headache(s), Denies malaise and Denies weakness Eyes Denies blurry vision, Denies change in vision, Denies irritation and Denies itchy eyes ENT Denies dysphagia, Denies dizziness, Denies otalgia, Denies headache(s), Denies nasal congestion, Denies neck pain, Denies odynophagia and Denies sore throat Card Denies chest pain, Denies rapid heart rate, Denies irregular heart rhythm, Denies palpitations and Denies dyspnea Resp Denies chest congestion, Denies cough, Denies dyspnea and Denies wheezing GI Denies abdominal pain, Denies bloating, Denies constipation, Denies dysphagia, Denies heartburn, Denies diarrhea, Denies nausea, Denies odynophagia and Denies vomiting Denies hematuria, Denies difficulty urinating, Denies dysuria, Denies urinary frequency and Denies urinary urgency Musc Denies back pain, Denies arthralgias, Denies joint swelling, Denies muscle weakness and Denies neck pain Skin/Breast Denies change in pigmentation, Denies lesions, Denies rash and Denies unusual bruising Neuro Denies dizziness, Denies headache(s), Denies paresthesias and Denies weakness Endo Denies fatigue and Denies palpitations Aller/Immun Denies itchy eyes and Denies wheezing Physical exam (Primary Care) Vital Signs: Last Vital Signs Pulse 66 04/05/23 15:39 BP 122/80 04/05/23 15:39 Pulse Ox 97 04/05/23 15:39 Oxygen Delivery Method Room Air 04/05/23 15:39 BMI result Body Mass Index 20.4 Tobacco/Smoking Status: Tobacco use Status Tobacco use date assessed 04/05/23 04/05/23 15:44 Patient Tobacco Use Status Former Tobacco user 04/05/23 15:44 Tobacco use type Cigarette 04/05/23 15:44 e-Cigarette/Vaping Use Never Used 04/05/23 15:44 PHQ-9: PHQ-9 Score PHQ-9: Total score 0 04/05/23 16:22 Depression Screening Interpretation: Negative Thrive Assessment: Date of Thrive Assessment Date Thrive assessed 04/05/23 04/05/23 15:44 Currently or been in a relationship where the following occur: no concerns reported Const General: no acute distress, alert and awake Orientation/consciousness: patient oriented x3 HENMT Head: Yes normocephalic and Yes atraumatic Ears: external ears normal, TM's normal bilaterally and EAC's normal General nose exam: No nasal discharge present Face and sinus: Yes normal facial exam and Yes sinuses nontender Teeth and gingiva: dentition normal Throat: Yes posterior oropharynx normal and Yes tonsils normal (no TP congest ion) Eyes Eyelids: Yes eyelids normal Conjunctivae: conjunctivae normal Pupils: Equal, round and reactive pupils present EOM: EOMs intact bilaterally Neck Neck: Yes no lymphadenopathy and Yes supple Thyroid: Thyroid normal Resp Auscultation: clear to auscultation bilaterally, no rales and no wheezes Cardio Rate: regular rate Rhythm: regular rhythm Heart sounds: no murmurs GI Palpation (GI): Soft to palpation, nontender and No hepatosplenomegaly present Auscultation: normal bowel sounds General: Yes no CVA tenderness Back/Spine/Pelvis Back: no CVA tenderness Thoracic/Lumbar Spine: thoracic and lumbar spine normal to inspection Skin Lesions: no lesions Rashes: no rashes Neuro General: patient oriented x3, moves all extremities, no focal motor deficits and CN's II-XI intact bilaterally Cranial nerves: Yes Equal, round and reactive pupils present Cognition (Neuro): normal cognition Gait exam (Neuro): Normal gait present Extrem General: Yes no clubbing, cyanosis or edema Assessment and Plan Assessment & Plan (1) Annual physical exam: Code(s): Z00.00 - Encounter for general adult medical examination without abnormal findings Plan: Patient is up-to-date with his cancer screenings Last had his colonoscopy done with Dr. Marie in 2012 and at the time, was adv ised that he no longer needs any follow up screening colonoscopy then He last had follow up labs done in April 2022 and asked to just have them done prior to his next visit in 4 months unless he has any tests that need to be urgently rechecked at this time (2) Paroxysmal atrial fibrillation: Comment: Sees Dr Meraz Code(s): I48.0 - Paroxysmal atrial fibrillation Plan: Patient currently remains in sinus rhythm today Continue Eliquis 5 mg BID for thromboembolism prophylaxis - Rx refilled Continue Carvedilol 12.5 mg BID; was previously on Diltiazem for rate and rhythm control but this was discontinued due to frequent low BP readings Follow-up with cardiology as scheduled (3) Benign essential hypertension: Code(s): I10 - Essential (primary) hypertension Plan: Reinforced low sodium diet - goal is systolic BP of at least 140 mm or less Continue Carvedilol 12.5 mg BID Patient is reminded to continue monitoring his blood pressure regularly (4) Pure hypercholesterolemia: Code(s): E78.00 - Pure hypercholesterolemia, unspecified Plan: Reinforced low cholesterol diet Per request, we will just have patient recheck his labs and fasting lipids in 4 months for follow up (5) Transaminitis: Code(s): R74.01 - Elevation of levels of liver transaminase levels Plan: RESOLVED - LFTs were back to normal and have remained normal on his most recent labs done in April 2022 Reminded again to avoid alcohol, including wine, as well as taking any Tylenol- containing medications Abdominal US done last year revealed no echogenic stones but the gallbladder wall thickness is at 0.40 cm; no tenderness in right upper quadrant was noted and no pericholecystic fluid collection was seen Will continue to monitor his LFTs regularly (6) SIADH (syndrome of inappropriate ADH production): Code(s): E22.2 - Syndrome of inappropriate secretion of antidiuretic hormone Plan: Had hyponatremia in the past but his serum sodium has been normal on his recent labs over the past year Continue Sodium Chloride tablets 1000 mg BID Follow-up with nephrology as scheduled (7) Lumbar degenerative disc disease: Code(s): M51.36 - Other intervertebral disc degeneration, lumbar region Plan: Reinforced activity and weight-lifting restrictions Was on Tramadol 50 mg Q HS PRN for increased pain in the past but he stopped Tramadol a while back and has only been taking OTC meds PRN for the past few months States that he uses some OTC muscle rubs as needed Offered to refer him to pain management but he declined (8) Primary osteoarthritis of right knee: Code(s): M17.11 - Unilateral primary osteoarthritis, right knee Plan: Follow up with orthopedics as scheduled (9) Primary osteoarthritis, left shoulder: Code(s): M19.012 - Primary osteoarthritis, left shoulder Plan: Left shoulder x-rays done last year revaled (+) mild glenohumeral joint osteoarthritis and mild acromioclavicular arthropathy If shoulder symptoms get worse, will refer him to orthopedics for further management (10) Postherpetic neuralgia: Code(s): B02.29 - Other postherpetic nervous system involvement Plan: Continue Pregabalin 100 mg BID States that he is still experiencing lingering on and off pain and discomfort around his left shoulder and left upper arm area where he had most of his shingles lesion a couple of years ago (11) Anemia: Code(s): D64.9 - Anemia, unspecified Qualifiers: Anemia type: other cause Other causes of anemia: other cause, not classified Qualified Code(s): D64.89 - Other specified anemias Plan: Improving - continue Ferrous Sulfate 325 mg QD Will continue to monitor his CBC regularly (12) Benign prostatic hyperplasia with lower urinary tract symptoms: Code(s): N40.1 - Benign prostatic hyperplasia with lower urinary tract symptoms Qualifiers: Lower urinary tract symptom detail: urinary frequency Qualified Code(s): N40.1 - Benign prostatic hyperplasia with lower urinary tract symptoms; R35.0 - Frequency of micturition Plan: Continue Tamsulosin 0.4 mg QD Follow-up with urology (Dr. Melara) as scheduled (13) Macular degeneration, bilateral: Code(s): H35.30 - Unspecified macular degeneration Qualifiers: Macular degeneration type: unspecified type Qualified Code(s): H35.30 - Unspecified macular degeneration Plan: Follow up with ophthalmology as scheduled (14) Anxiety: Code(s): F41.9 - Anxiety disorder, unspecified Plan: He has been doing well lately without any Rx Plan Follow up in 4 months Orders: Orders Complete Blood Count Auto Diff 4 Months I10 - Essential (primary) hypertension Lipid Panel 4 Months E78.00 - Pure hypercholesterolemia, unspecified UA CC w/rflx Micro + Cult 4 Months R30.0 - Dysuria Vitamin D 25-OH Total 4 Months E55.9 - Vitamin D deficiency, unspecified Vitamin B12 and Folate 4 Months E53.8 - Deficiency of other specified B group vitamins Osmolality, Serum 4 Months E87.1 - Hypo-osmolality and hyponatremia Comprehensive [place]. Panel Fast 4 Months E78.00 - Pure hypercholesterolemia, unspecified TSH reflex Free T4 4 Months E78.00 - Pure hypercholesterolemia, unspecified Prostate Specific Antigen Scr 4 Months Z00.00 - Encounter for general adult medical examination without abnormal findings Medications: Changed From apixaban (Eliquis) replace Xarelto 5 mg PO BID 60 tabs 1RF afib To apixaban (Eliquis) replace Xarelto 5 mg PO BID 90 days 180 tabs 1RF afib Coding Level of Care Code Est Pt Prev Care >65y(40319) Diagnoses Annual physical exam Z00.00 Paroxysmal atrial fibrillation I48.0 Benign essential hypertension I10 Pure hypercholesterolemia E78.00 Transaminitis R74.01 SIADH (syndrome of inappropriate ADH production) E22.2 Lumbar degenerative disc disease M51.36 Primary osteoarthritis of right knee M17.11 Primary osteoarthritis, left shoulder M19.012 Postherpetic neuralgia B02.29 Anemia due to other cause, not classified D64.89 Anemia type: other cause Other causes of anemia: other cause, not classified Benign prostatic hyperplasia with urinary frequency N40.1; R35.0 Lower urinary tract symptom detail: urinary frequency Macular degeneration of both eyes, unspecified type H35.30 Macular degeneration type: unspecified type Anxiety F41.9
== END 2023-04-05 16:30 | disposition home or self-care (01) ==
PROVIDERS: PCP Internal Medicine; Visit Provider Internal Medicine
DX: Z00.00 Encounter for general adult medical examination without abnormal findings (principal); I48.0 Paroxysmal atrial fibrillation; E22.2 Syndrome of inappropriate secretion of antidiuretic hormone; I10 Essential (primary) hypertension; E78.00 Pure hypercholesterolemia, unspecified; R74.01 Elevation of levels of liver transaminase levels; M51.36 Other intervertebral disc degeneration, lumbar region; M17.11 Unilateral primary osteoarthritis, right knee; M19.012 Primary osteoarthritis, left shoulder; B02.29 Other postherpetic nervous system involvement; D64.89 Other specified anemias; N40.1 Benign prostatic hyperplasia with lower urinary tract symptoms
CPT/HCPCS: 99397

== ENCOUNTER 2023-08-07 09:41 | Outpatient (REF) | payer MEDICARE, SELFPAY ==
[2023-08-07 10:01] LABS: MANUAL DIFF FLAG NO
[2023-08-07 10:45] LABS: Basophils Percent Auto 0.3 % (0-2); Eosinophils Absolute Auto 0.3 X10*3/uL (0.0-0.4); Eosinophils Percent Auto 5.9 % (0-4); Hematocrit 40.6 % (42.0-52.0); Hemoglobin 13.7 g/dl (14.0-18.0); Imm Gran Abs Auto 0.01 X10*3/uL (0.00-0.03); Imm Gran Pct Auto 0.2 % (0.0-0.4); Lymphocytes Absolute Auto 2.6 X10*3/uL (1.2-4.9); Mean Corpuscular HGB Conc 33.7 g/dl (31.0-36.0); Mean Corpuscular Hemoglobin 30.4 pg (27.0-33.0); Mean Platelet Volume 10.2 fL (9.4-12.4); Monocytes Absolute Auto 0.6 X10*3/uL (0.1-1.2); Monocytes Percent Auto 9.5 % (2-11); Neutrophils Absolute Auto 2.3 x10*3/uL (2.0-8.3); Neutrophils Percent Auto 39.1 % (45-73); Platelet Count 169 X10*3/uL (160-400); Red Blood Count 4.51 X10*6/uL (4.60-5.80); Red Cell Distribution Width 12.4 % (11.0-16.0); White Blood Count 5.8 X10*3/uL (4.8-10.8)
[2023-08-07 11:53] LABS: Osmolality, Serum 299 mosm/kg (281-305)
[2023-08-07 11:57] LABS: Folate 10.1 ng/mL (> or = 4.0); Prostate Specific Antigen Scr 1.26 ng/mL (<0.05-4.0); Vitamin B12 947 pg/mL (200-900)
[2023-08-07 12:37] LABS: Alanine Aminotransferase 15 U/L (0-40); Albumin Level 3.8 g/dL (3.5-5.0); Alkaline Phosphatase 44 U/L (39-117); Anion Gap 12 (12-20); Aspartate Amino Transferase 20 U/L (5-37); Bilirubin Total 0.5 mg/dL (0.0-1.0); Blood Urea Nitrogen 21 mg/dL (9-16); Calcium 9.1 mg/dL (8.4-10.2); Carbon Dioxide 26 mmol/L (22-29); Chloride 105 mmol/L (96-108); Cholesterol 197 mg/dL (<200); Estimated Glomerular Filt Rate > 60; Glucose Fasting 86 mg/dL (60-99); HDL Cholesterol 45 mg/dL (>40); LDL Cholesterol Calculated 131 mg/dL (<100); Potassium 3.9 mmol/L (3.3-5.1); Sodium 139 mmol/L (135-145); Total Protein 7.3 g/dL (6.5-8.0); Triglycerides 107 mg/dL (<150)
[2023-08-07 12:55] LABS: Vitamin D 25-OH Total 56.9 ng/mL (>30)
[2023-08-07 13:37] LABS: Free T4 (Free Thyroxine) 1.09 ng/dL (0.71-1.85)
== END 2023-08-07 09:42 | disposition home or self-care (01) ==
LOC: HO.LAB 09:41
PROVIDERS: PCP Internal Medicine; Visit Provider Internal Medicine
DX: Z00.00 Encounter for general adult medical examination without abnormal findings (principal); R30.0 Dysuria; E55.9 Vitamin D deficiency, unspecified; E53.8 Deficiency of other specified B group vitamins; E78.00 Pure hypercholesterolemia, unspecified; E87.1 Hypo-osmolality and hyponatremia; I10 Essential (primary) hypertension; Z12.5 Encounter for screening for malignant neoplasm of prostate
CPT/HCPCS: 36415; 80053; 80061; 82306; 82607; 82746; 83930; 84153; 84439; 84443; 85025

== ENCOUNTER 2023-10-10 15:01 | Outpatient (AMB) | payer MEDICARE, SELFPAY ==
--- NOTE | 2023-10-10 15:15 | MHC.PC.OV ---
Vital Signs 10/10/23 15:20 Height 5 ft 8 in Weight 138 lb BMI 21.0 BP 130/72 Blood Pressure Location Lt brachial Position Sitting Pulse 73 Pulse Source Pulse Oximeter Pulse Oximetry (%) 94 Oxygen Delivery Method Room Air Intake Visit Reasons: follow up. Intake Note: Patient is here to follow up on HTN, PAfib, Hypercholesterolemia, Neuropathy. Rough Rib Grader Required: No Air Conditioning Installer Supervisor: Not Required per policy Accompanied by: Self / Same As Patient Allergies atorvastatin [Lipitor] Allergy (Severe, Verified 10/10/23 15:53) face swelling amlodipine Adverse Reaction (Intermediate, Verified 10/10/23 15:53) dizziness Pradaxa Adverse Reaction (Severe, Uncoded 10/10/23 15:53) weakness, dyspnea Medication List - Last Reconciled 10/10/23 by Daniel Lehman MD aspirin 81 mg PO DAILY carvedilol 12.5 mg PO BID ferrous sulfate 325 mg PO QAM driu-tbptj-fj9-jeg-axj-unqx-st [id number] mg (Glucosamine Chondroitin PLUS) 1 cap PO DAILY pregabalin 100 mg PO BID 30 days sodium chloride 1,000 mg PO BID tamsulosin 0.8 mg PO BEDTIME vit C,F-Rg-eowga-lutein-zeaxan 250-90-40-1 mg (PreserVision AREDS-2) 1 tab PO DAILY Tobacco use date assessed: 10/10/23 Fall risk assessment: No Falls in past year Last assessed Fall Risk: 10/10/23 Dental Screening Dental Screen Date: 10/10/23 Did you have a dental visit in the last 12 months?: No Did you have a dental problem in the last 6 months where you did not have access to dental care?: No Was dental information given to patient?: No HPI follow up. HPI Details Patient comes in today for his follow up visit States that he has been experiencing recurrent symptoms of cough and congestion for a couple of weeks now States that his chest feels congested often lately and tight at times Relates (+) fatigue lately but he denies any fever or sore throat He denies any headaches or dizziness Denies any chest pains; notes (+) ALEXIS lately due to his recurrent cough and congestion No nausea/vomiting, no abdominal pain No change in bowel habits noted Had his follow up labs done a couple of months ago - to discuss his results [facility] Medical History (Updated 02/13/24 @ 10:02 by Daniel Lehman MD) Postherpetic neuralgia Elevated LFTs Supraumbilical hernia Umbilical hernia SIADH (syndrome of inappropriate ADH production) On anticoagulant therapy Umbilical hernia Chest pain of unknown etiology Abdominal wall mass of periumbilical region Gait instability Postoperative intra-abdominal abscess Hyponatremia Anemia Renal insufficiency Anxiety Frequency of urination Benign prostatic hyperplasia with lower urinary tract symptoms Macular degeneration, bilateral Primary osteoarthritis of right knee Lumbar degenerative disc disease Neuropathy Pure hypercholesterolemia Benign essential hypertension Paroxysmal atrial fibrillation Surgical History History of hernia repair H/O umbilical hernia repair Hx of colonoscopy History of appendectomy (~05/2020) Status post arthroscopic surgery of right knee (~03/2016) History of arthroscopy of left knee (~12/2015) History of inguinal hernia repair Family History Mother Hypertension Social History (Updated 10/10/23 @ 15:24 by ERICA Campos) Housing: House Are you a primary out of school hours care worker to a significant other at home: No Do you presently have visiting nurse or other home services: No Alcohol intake: current Alcohol intake frequency: holidays/special occasions only Alcohol type: wine Patient Tobacco Use Status: Former Tobacco user Tobacco use type: Cigarette e-Cigarette/Vaping Use: Never Used Second Hand Smoke Exposure: Yes service: Yes Current occupational status: retired Cognitive needs: No Hearing needs: No Vision needs: Yes (glasses) Questionnaire PHQ-9 Over the last 2 weeks, how often have you been bothered by any of the following problems? 1. Little interest or pleasure in doing things: not at all 2. Feeling down, depressed, or hopeless: not at all 3. Trouble falling or staying asleep, or sleeping too much: not at all 4. Feeling tired or having little energy: not at all 5. Poor appetite or overeating: not at all 6. Feeling bad about yourself - or that you are a failure or have let yourself or your family down: not at all 7. Trouble concentrating on things, such as reading the newspaper or watching television: not at all 8. Moving or speaking so slowly that other people could have noticed. Or the opposite - being so fidgety or restless that you have been moving around a lot more than usual: not at all 9. Thoughts that you would be better off or of hurting yourself in some way: not at all Total score: 0 Depression Screening Interpretation: Negative Depression Screening Done: Yes 40119 - PHQ-9 Billing: Yes Source: Developed by Drs. Cosme Evans, Shea Cowan, Lobo Franks and colleagues, with an educational yasmin from [employer]. Thrive Questionnaire Date Thrive assessed: 10/10/23 I am a: Patient What is your living situation today?: I have a steady place to live Within the past 12 months, did the food you bought not last and you didn't have the money to get more?: Never true Within the past 12 months, did you worry whether your food would run out before you got money to buy more?: Never true Do you have trouble paying for medicines?: No Do you have trouble getting transportation to medical appointments?: No Do you have trouble paying your heating and electricity bill?: No Do you have trouble taking care of your child, family member or friend?: No Do you have trouble with day-to-day activities such as bathing, preparing meals, shopping, managing finances, etc.?: No Are you currently unemployed and looking for a job?: No Are you interested in more education?: No Currently or been in a relationship where the following occur: no concerns reported THRIVE Score: 0 AUDIT C Alcohol Use Questionnaire (AUDIT-C) 1. How often do you have a drink containing alcohol?: 4 or more times a week 2. How many drinks containing alcohol do you have on a typical day when you are drinking?: 1 or 2 3. How often do you have six or more drinks on one occasion?: Never Total Score: 4 Score Reviewed/Action Taken: Yes HUSEYIN-7 AMB Questionnaire HUSEYIN-7 Date HUSEYIN - 7 assessed: 10/10/23 Feeling nervous, anxious, or on edge: 0 = Not at all Not being able to stop or control worryin = Not at all Worrying too much about different things: 0 = Not at all Trouble relaxin = Not at all Being so restless that it is hard to sit still: 0 = Not at all Becoming easily annoyed or irritable: 0 = Not at all Feeling afraid as if something awful might happen: 0 = Not at all Total HUSEYIN-7 score (0-4 normal; 5-9 mild; 10-14 moderate; 15-21 severe): 0 Source: Developed by Drs. Cosme Evans, Shea Cowan, Lobo Franks and colleagues, with an educational yasmin from [employer]. Review of Systems Const Denies chills, Reports fatigue, Denies fever(s) and Denies headache(s) ENT Denies dysphagia, Denies dizziness, Denies otalgia, Denies headache(s), Denies neck pain, Denies odynophagia and Denies sore throat Card Denies chest pain, Denies irregular heart rhythm, Denies palpitations and Reports dyspnea on exertion Resp Reports chest congestion (chest feels tight at times), Reports cough (recurrent lately), Denies hemoptysis, Reports dyspnea on exertion and Denies wheezing GI Denies abdominal pain, Denies constipation, Denies dysphagia, Denies heartburn, Denies diarrhea, Denies nausea, Denies odynophagia and Denies vomiting Denies difficulty urinating, Denies dysuria and Denies urinary frequency Musc Reports back pain (over the lower back - chronic), Reports arthralgias (right shoulder) and Denies neck pain Skin/Breast Denies rash Neuro Denies dizziness, Denies headache(s) and Denies paresthesias Endo Reports fatigue and Denies palpitations Aller/Immun Denies wheezing Physical exam (Primary Care) Vital Signs: Last Vital Signs Pulse 73 10/10/23 15:20 BP 130/72 10/10/23 15:20 Pulse Ox 94 10/10/23 15:20 Oxygen Delivery Method Room Air 10/10/23 15:20 BMI result Body Mass Index 21.0 Tobacco/Smoking Status: Tobacco use Status Tobacco use date assessed 10/10/23 10/10/23 15:19 Patient Tobacco Use Status Former Tobacco user 10/10/23 15:24 Tobacco use type Cigarette 10/10/23 15:24 e-Cigarette/Vaping Use Never Used 10/10/23 15:24 PHQ-9: PHQ-9 Score PHQ-9: Total score 0 10/10/23 15:54 Depression Screening Interpretation: Negative Thrive Assessment: Date of Thrive Assessment Date Thrive assessed 10/10/23 10/10/23 15:19 Currently or been in a relationship where the following occur: no concerns reported Const General: no acute distress and alert HENMT Ears: TM's normal bilaterally and EAC's normal Throat: Yes posterior oropharynx normal and Yes tonsils normal (no TP congestion) Neck Neck: Yes no lymphadenopathy and Yes supple Thyroid: Thyroid normal Resp Auscultation: no crackles, no rales, rhonchi (scattered) throughout, wheezes (faint) expiratory wheezes and throughout and diminished lung sounds (slightly) bilateral Cardio Rate: regular rate Rhythm: regular rhythm Heart sounds: no murmurs GI Palpation (GI): Soft to palpation and nontender Auscultation: normal bowel sounds General: Yes no CVA tenderness Back/Spine/Pelvis Back: no CVA tenderness Thoracic/Lumbar Spine: lumbar spinal tenderness (mild) Skin Rashes: no rashes Extrem General: Yes no clubbing, cyanosis or edema Results Reviewed Results Reviewed: Laboratory Tests 08/07/23 10:00 WBC 5.8 Hgb 13.7 L Hct 40.6 L Plt Count 169 Sodium 139 Potassium 3.9 Creatinine 1.05 Estimated GFR > 60 Fasting Glucose 86 Osmolality 299 Calcium 9.1 AST 20 ALT 15 Triglycerides 107 Cholesterol 197 LDL Cholesterol, Calc 131 H HDL Cholesterol 45 PSA Screen 1.26 Vitamin B12 947 H 25-OH Vitamin D Total 56.9 TSH 4.40 H Free T4 1.09 Assessment and Plan Assessment & Plan (1) Asthmatic bronchitis: Code(s): J45.909 - Unspecified asthma, uncomplicated Qualifiers: Asthma severity: unspecified severity Asthma complication type: uncomplicated Asthma persistence: unspecified Qualified Code(s): J45.909 - Unspecified asthma, uncomplicated Plan: Will send patient for chest x-rays for further evaluation Will start him empirically on oral Doxycycline 100 mg BID x 10 days, as well as on oral Prednisone taper Will also start him on Albuterol HFA 1 to 2 inhalations Q 6 hours PRN and also on Guaifenesin with codeine 10-100 mg/5 ml BID-TID PRN only for severe coughing (2) Paroxysmal atrial fibrillation: Comment: Sees Dr Meraz Code(s): I48.0 - Paroxysmal atrial fibrillation Plan: Patient currently remains in sinus rhythm today Continue Eliquis 5 mg BID for thromboembolism prophylaxis Continue Carvedilol 12.5 mg BID; he was previously on Diltiazem for rate and rhythm control but this was discontinued due to frequent low BP readings Follow-up with cardiology as scheduled (3) Benign essential hypertension: Code(s): I10 - Essential (primary) hypertension Plan: Reinforced low sodium diet - goal is systolic BP of at least 140 mm or less Continue Carvedilol 12.5 mg BID Patient is reminded to continue monitoring his blood pressure regularly (4) Pure hypercholesterolemia: Code(s): E78.00 - Pure hypercholesterolemia, unspecified Plan: Results of his labs done a couple of months ago reviewed and discussed with patient Reinforced low cholesterol diet Will have patient recheck his labs and fasting lipids in 4 months for follow up (5) Transaminitis: Code(s): R74.01 - Elevation of levels of liver transaminase levels Plan: RESOLVED - LFTs were back to normal and have remained normal on his most recent labs done in April 2022 Reminded again to avoid alcohol, including wine, as well as taking any Tylenol-containing medications Abdominal US done last year revealed no echogenic stones but the gallbladder wall thickness is at 0.40 cm; no tenderness in right upper quadrant was noted and no pericholecystic fluid collection was seen Will continue to monitor his LFTs regularly (6) SIADH (syndrome of inappropriate ADH production): Code(s): E22.2 - Syndrome of inappropriate secretion of antidiuretic hormone Plan: He had hyponatremia in the past but his serum sodium has been normal on his recent labs over the past year Continue Sodium Chloride tablets 1000 mg BID Follow-up with nephrology as scheduled (7) Lumbar degenerative disc disease: Code(s): M51.36 - Other intervertebral disc degeneration, lumbar region Plan: Reinforced activity and weight-lifting restrictions He was on Tramadol 50 mg Q HS PRN for increased pain in the past but he stopped Tramadol a while back and has only been taking OTC meds PRN for the past few months States that he uses some OTC muscle rubs as needed Have offered to refer him to pain management but he declined (8) Primary osteoarthritis of right knee: Code(s): M17.11 - Unilateral primary osteoarthritis, right knee Plan: Follow up with orthopedics as scheduled (9) Primary osteoarthritis, left shoulder: Code(s): M19.012 - Primary osteoarthritis, left shoulder Plan: Left shoulder x-rays done last year revaled (+) mild glenohumeral joint osteoarthritis and mild acromioclavicular arthropathy If his shoulder symptoms get worse, will refer him to orthopedics for further management (10) Postherpetic neuralgia: Code(s): B02.29 - Other postherpetic nervous system involvement Plan: Continue Pregabalin 100 mg BID States that he is still experiencing lingering on and off pain and discomfort around his left shoulder and left upper arm area where he had most of his shingles lesion a couple of years ago (11) Anemia: Code(s): D64.9 - Anemia, unspecified Qualifiers: Anemia type: other cause Other causes of anemia: other cause, not classified Qualified Code(s): D64.89 - Other specified anemias Plan: Improving - continue Ferrous Sulfate 325 mg QD Will continue to monitor his CBC regularly (12) Benign prostatic hyperplasia with lower urinary tract symptoms: Code(s): N40.1 - Benign prostatic hyperplasia with lower urinary tract symptoms Qualifiers: Lower urinary tract symptom detail: urinary frequency Qualified Code(s): N40.1 - Benign prostatic hyperplasia with lower urinary tract symptoms; R35.0 - Frequency of micturition Plan: Continue Tamsulosin 0.4 mg QD Follow-up with urology (Dr. Melara) as scheduled (13) Macular degeneration, bilateral: Code(s): H35.30 - Unspecified macular degeneration Qualifiers: Macular degeneration type: unspecified type Qualified Code(s): H35.30 - Unspecified macular degeneration Plan: Follow up with ophthalmology as scheduled (14) Anxiety: Code(s): F41.9 - Anxiety disorder, unspecified Plan: He has been doing well lately without any Rx Plan Follow up in 4 months Orders: Orders XR chest 2V 10/11/23 J98.8 - Other specified respiratory disorders Complete Blood Count Auto Diff 4 Months D64.9 - Anemia, unspecified Comprehensive [place]. Panel Fast 4 Months E78.00 - Pure hypercholesterolemia, unspecified Lipid Panel 4 Months E78.00 - Pure hypercholesterolemia, unspecified Medications: New prednisone 4 tablets x 2 days, then 3 tablets x 2 days, then 2 tablets x 2 days, then 1 tablet x 2 days 20 tabs 0RF 8 days J45.901 - Unspecified asthma with (acute) exacerbation, M25.50 - Pain in unspecified joint albuterol sulfate 90 mcg/actuation (Ventolin HFA) 2 puffs inhalation Q6H PRN 8.5 grams 5RF shortness of breath or wheezing 30 days codeine-guaifenesin 10-100 mg/5 mL Take ONLY NEEDED for severe coughing 5 mL PO BID-TID PRN 105 mL 0RF severe cough 7 days doxycycline hyclate 100 mg PO BID 20 caps 0RF 10 days Coding Level of Care Code Est Pt Level 4 (03294) Diagnoses Asthmatic bronchitis without complication, unspecified asthma severity, unspecified whether persistent J45.909 Asthma severity: unspecified severity Asthma complication type: uncomplicated Asthma persistence: unspecified Paroxysmal atrial fibrillation I48.0 Benign essential hypertension I10 Pure hypercholesterolemia E78.00 Transaminitis R74.01 SIADH (syndrome of inappropriate ADH production) E22.2 Lumbar degenerative disc disease M51.36 Primary osteoarthritis of right knee M17.11 Primary osteoarthritis, left shoulder M19.012 Postherpetic neuralgia B02.29 Anemia due to other cause, not classified D64.89 Anemia type: other cause Other causes of anemia: other cause, not classified Benign prostatic hyperplasia with urinary frequency N40.1; R35.0 Lower urinary tract symptom detail: urinary frequency Macular degeneration of both eyes, unspecified type H35.30 Macular degeneration type: unspecified type Anxiety F41.9
[2023-10-10 15:20] VITALS: BP 130/72; PULSE 73; O2SAT 94; BMI 21.0
== END 2023-10-10 16:07 | disposition home or self-care (01) ==
PROVIDERS: PCP Internal Medicine; Visit Provider Internal Medicine
DX: J45.909 Unspecified asthma, uncomplicated (principal); I48.0 Paroxysmal atrial fibrillation; I10 Essential (primary) hypertension; E78.00 Pure hypercholesterolemia, unspecified; R74.01 Elevation of levels of liver transaminase levels; E22.2 Syndrome of inappropriate secretion of antidiuretic hormone; M51.36 Other intervertebral disc degeneration, lumbar region; M17.11 Unilateral primary osteoarthritis, right knee; M19.012 Primary osteoarthritis, left shoulder; B02.29 Other postherpetic nervous system involvement; D64.89 Other specified anemias; N40.1 Benign prostatic hyperplasia with lower urinary tract symptoms; R35.0 Frequency of micturition; H35.30 Unspecified macular degeneration; F41.9 Anxiety disorder, unspecified
CPT/HCPCS: 99499

== ENCOUNTER 2023-10-11 13:58 | Outpatient (REF) | payer MEDICARE, SELFPAY ==
--- NOTE | ~2023-10-11 | XR_ITS ---
EXAMINATION: XR CHEST CLINICAL INFORMATION: Pneumonia COMPARISON: 12/01/2015 TECHNIQUE: 2 views of the chest were obtained. FINDINGS: Probable left ventricular hypertrophy configuration. Aortic calcifications. Unremarkable mediastinum and vascularity. No consolidations or effusions. Bony structures are intact. XR/XR chest 2V IMPRESSION: No acute cardiopulmonary disease or interval change.
== END 2023-10-11 13:59 | disposition home or self-care (01) ==
LOC: HO.XRAY 13:58
PROVIDERS: PCP Internal Medicine; Visit Provider Internal Medicine
DX: J98.8 Other specified respiratory disorders (principal)
CPT/HCPCS: 71046

== ENCOUNTER 2024-03-28 10:27 | Outpatient (AMB) | payer MEDICARE, SELFPAY ==
--- NOTE | 2024-03-28 10:27 | A.OFFPC_ITS ---
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 Required: No Accompanied by: Self / Same As Patient Allergies atorvastatin [Lipitor] Allergy (Severe, Verified 03/28/24 10:40) face swelling amlodipine Adverse Reaction (Intermediate, Verified 03/28/24 10:40) dizziness Pradaxa Adverse Reaction (Severe, Uncoded 03/28/24 10:40) weakness, dyspnea Medication List - Last Reconciled 03/28/24 by Daniel Lehman MD albuterol sulfate 90 mcg/actuation (Ventolin HFA) 2 puffs inhalation Q6H PRN 30 days apixaban (Eliquis) 5 mg PO BID 90 days aspirin 81 mg PO DAILY carvedilol 12.5 mg PO BID codeine-guaifenesin 10-100 mg/5 mL 5 mL PO BID-TID PRN 7 days doxycycline hyclate 100 mg PO BID 10 days ferrous sulfate 325 mg PO QAM owoj-xnglx-kx4-txr-flu-zruv-st 325-189-22-54 mg (Glucosamine Chondroitin PLUS) 1 cap PO DAILY prednisone 4 tablets x 2 days, then 3 tablets x 2 days, then 2 tablets x 2 days, then 1 tablet x 2 days 8 days pregabalin 100 mg PO BID 30 days sodium chloride 1,000 mg PO BID tamsulosin 0.8 mg (2 x 0.4 mg) PO BEDTIME 90 days vit C,Z-Ew-wjmup-lutein-zeaxan 250-90-40-1 mg (PreserVision AREDS-2) 1 tab PO DAILY Tobacco use date assessed: 03/28/24 Fall risk assessment: No Falls in past year Last assessed Fall Risk: 03/28/24 Dental Screening Dental Screen Date: 03/28/24 Did you have a dental visit in the last 12 months?: No Did you have a dental problem in the last 6 months where you did not have access to dental care?: No Was dental information given to patient?: No HPI Cough -[id number] Iphone Video HPI Details Patient's follow up visit / consultation today is done over video conference (iPhone/iPad/Google Meets/Doximrobert) - this is a TELEHEALTH visit Patient's current medications have been reviewed and verified with patient and/or caregiver/proxy and have been updated accordingly in the medication list Patient states that he has been experiencing a recurrent/persistent non- productive cough for the past 1 to 2 weeks now States that he has tried using some OTC lozenges for the past few days with little relief - states that there are times when he coughs non-stop and is hardly able to talk as a result Relates that he had COVID about a month ago and could not get into the half-way in [place] where his is now residing at due to her Alzheimer's dementia States that he eventually tested negative about a week later, after which he was allowed back into the half-way to see his but he could not see her again this past week due to his incessant coughing Feels that he now has bronchitis and is looking for some Abx and cough syrup to help calm down his coughing States that his symptoms are not the same as when he had COVID last month He denies any fever or sore throat; denies any headaches or dizziness Denies any chest pains, no increased SOB No nausea/vomiting, no abdominal pain No change in bowel habits noted [facility] Medical History Postherpetic neuralgia Elevated LFTs Supraumbilical hernia Umbilical hernia SIADH (syndrome of inappropriate ADH production) On anticoagulant therapy Umbilical hernia Chest pain of unknown etiology Abdominal wall mass of periumbilical region Gait instability Postoperative intra-abdominal abscess Hyponatremia Anemia Renal insufficiency Anxiety Frequency of urination Benign prostatic hyperplasia with lower urinary tract symptoms Macular degeneration, bilateral Primary osteoarthritis of right knee Lumbar degenerative disc disease Neuropathy Pure hypercholesterolemia Benign essential hypertension Paroxysmal atrial fibrillation Surgical History History of hernia repair H/O umbilical hernia repair Hx of colonoscopy History of appendectomy (~05/2020) Status post arthroscopic surgery of right knee (~03/2016) History of arthroscopy of left knee (~12/2015) History of inguinal hernia repair Family History Mother Hypertension Social History Housing: House Are you a primary pharmacist critical care to a significant other at home: No Do you presently have visiting nurse or other home services: No Alcohol intake: current Alcohol intake frequency: holidays/special occasions only Alcohol type: wine Patient Tobacco Use Status: Former Tobacco user Tobacco use type: Cigarette e-Cigarette/Vaping Use: Never Used Second Hand Smoke Exposure: Yes service: Yes Current occupational status: retired Cognitive needs: No Hearing needs: No Vision needs: Yes (glasses) Questionnaire PHQ-9 Over the last 2 weeks, how often have you been bothered by any of the following problems? 1. Little interest or pleasure in doing things: not at all 2. Feeling down, depressed, or hopeless: not at all 3. Trouble falling or staying asleep, or sleeping too much: not at all 4. Feeling tired or having little energy: not at all 5. Poor appetite or overeating: not at all 6. Feeling bad about yourself - or that you are a failure or have let yourself or your family down: not at all 7. Trouble concentrating on things, such as reading the newspaper or watching television: not at all 8. Moving or speaking so slowly that other people could have noticed. Or the opposite - being so fidgety or restless that you have been moving around a lot more than usual: not at all 9. Thoughts that you would be better off or of hurting yourself in some way: not at all Total score: 0 Depression Screening Interpretation: Negative Depression Screening Done: Yes 64411 - PHQ-9 Billing: Yes Source: Developed by Drs. Cosme Evans, Shea Cowan, Lobo Franks and colleagues, with an educational yasmin from [employer] Thrive Questionnaire Date Thrive assessed: 03/28/24 I am a: Patient What is your living situation today?: I have a steady place to live Within the past 12 months, did the food you bought not last and you didn't have the money to get more?: Never true Within the past 12 months, did you worry whether your food would run out before you got money to buy more?: Never true Do you have trouble paying for medicines?: No Do you have trouble getting transportation to medical appointments?: No Do you have trouble paying your heating and electricity bill?: No Do you have trouble taking care of your child, family member or friend?: No Do you have trouble with day-to-day activities such as bathing, preparing meals, shopping, managing finances, etc.?: No Are you currently unemployed and looking for a job?: No Are you interested in more education?: No Please select the resources that you would like help with: None Currently or been in a relationship where the following occur: No concerns repor katherine THRIVE Score: 0 AUDIT C Alcohol Use Questionnaire (AUDIT-C) 1. How often do you have a drink containing alcohol?: 4 or more times a week 2. How many drinks containing alcohol do you have on a typical day when you are drinking?: 1 or 2 3. How often do you have six or more drinks on one occasion?: Never Total Score: 4 Score Reviewed/Action Taken: Yes HUSEYIN-7 AMB Questionnaire HUSEYIN-7 Date HUSEYIN - 7 assessed: 03/28/24 Feeling nervous, anxious, or on edge: 0 = Not at all Not being able to stop or control worryin = Not at all Worrying too much about different things: 0 = Not at all Trouble relaxin = Not at all Being so restless that it is hard to sit still: 0 = Not at all Becoming easily annoyed or irritable: 0 = Not at all Feeling afraid as if something awful might happen: 0 = Not at all Total HUSEYIN-7 score (0-4 normal; 5-9 mild; 10-14 moderate; 15-21 severe): 0 Source: Developed by Drs. Cosme Evans, Shea Cowan, Lobo Franks and colleagues, with an educational yasmin from [employer] Review of Systems Const Denies body aches, Denies chills, Reports fatigue, Denies fever(s) and Denies headache(s) ENT Denies dysphagia, Denies dizziness, Denies otalgia, Denies headache(s), Denies neck pain, Denies odynophagia and Denies sore throat Card Denies chest pain, Denies irregular heart rhythm, Denies palpitations and Reports dyspnea on exertion (mild) Resp Denies chest congestion, Reports cough (recurrent / frequent; non-productive), Denies excessive phlegm production, Denies pain with cough, Reports dyspnea on exertion (mild) and Denies wheezing GI Denies abdominal pain, Denies constipation, Denies dysphagia, Denies heartburn, Denies diarrhea, Denies nausea, Denies odynophagia and Denies vomiting Denies difficulty urinating, Denies dysuria and Denies urinary frequency Musc Reports back pain (over the lower back - chronic), Reports arthralgias (right shoulder) and Denies neck pain Skin/Breast Denies rash Neuro Denies dizziness, Denies headache(s) and Denies paresthesias Endo Reports fatigue and Denies palpitations Aller/Immun Denies wheezing Physical exam (Primary Care) Vital Signs: Physical examination is not performed as visit / consultation today is done over videoconference - Telehealth visit All physical findings indicated here, if present, are as per patient's and / or caregivers / proxy's report and visual inspection over videoconference, if appropriate or applicable Tobacco/Smoking Status: Tobacco use Status Tobacco use date assessed 03/28/24 03/28/24 10:29 Patient Tobacco Use Status Former Tobacco user 03/28/24 10:29 Tobacco use type Cigarette 03/28/24 10:29 e-Cigarette/Vaping Use Never Used 03/28/24 10:29 PHQ-9: PHQ-9 Score PHQ-9: Total score 0 03/28/24 10:29 Depression Screening Interpretation: Negative Thrive Assessment: Date of Thrive Assessment Date Thrive assessed 03/28/24 03/28/24 10:29 Currently or been in a relationship where the following occur: No concerns reported Telehealth Telehealth Telehealth Platform: Telephone Location of provider rendering services: practice address Location of patient: address on file Patient Identification confirmed using: Name, : Yes Telehealth method: video (Facetime) Patient verbally consented to treatment: Yes Patient verbally consented to billing insurance company: Yes Patient informed of any privacy concerns related to visit: Yes Minutes spent on Phone/Video with Pt.: 16 Assessment and Plan Assessment & Plan (1) Bronchitis: Code(s): J40 - Bronchitis, not specified as acute or chronic Plan: Will start patient again empirically on Doxycycline 100 mg BID x 10 days Will also start him back on his previous Rx for cough - codeine-guaifenesin 10- 100 mg/5 mL to take 5 ml BID-TID PRN for severe coughing He is advised to call if his symptoms progress despite Rx or if he does not experience any significant improvement of his symptoms over the next couple of weeks Plan Follow up as scheduled in July 2024 Medications: Refilled codeine-guaifenesin 10-100 mg/5 mL Take ONLY NEEDED for severe coughing 5 mL PO BID-TID 7 days PRN 105 mL 0RF severe cough doxycycline hyclate 100 mg PO BID 10 days 20 caps 0RF Coding Level of Care Code Tele Est Pt Level 3 (81814) Diagnoses Bronchitis J40
== END 2024-03-28 11:41 | disposition home or self-care (01) ==
LOC: HO.HMCH 10:27
PROVIDERS: PCP Internal Medicine; Visit Provider Internal Medicine
DX: J40 Bronchitis, not specified as acute or chronic (principal)

== ENCOUNTER → 2024-03-28 10:27 | Outpatient (BNVA) | payer MEDICARE, SELFPAY | PROVIDERS: PCP Internal Medicine; Visit Provider Internal Medicine ==

== ENCOUNTER 2024-07-19 08:54 | Outpatient (REF) | payer MEDICARE, SELFPAY ==
--- OUTSIDE RECORDS SUMMARY | 2024-07-19 08:58 | XMS_ITS | Patient Health Record ---
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 Name Role Phone Dominik MANUEL, Daniel Primary Care Provider Cosme Viera [phone] ALLERGIES Allergen (clinical drug ingredient) Drug/Non Drug Allergy documented on EMR Reaction Allergy Type Onset Date Status atorvastatin Lipitor Unknown Drug Allergy Acti ve REASON FOR REFERRAL No Information MEDICATIONS Medication SIG (Take, Route, Fr equency, Duration) Notes Start Date End Date Status Atenolol 50 mg Activ e Chlorothiazide 250 mg Active Multaq 400 mg Active Lutein 40 mg Active Vitamin A 1,000 mg A ctive PreserVision/Lutein Active Lisinopril 40 mg Act kennedy Crestor 10 mg Active Xarelto Active MoviPrep 100 GM as directed Orally a s directed for 1 dose 05/29/2013 Active SOCIAL HISTORY Sex Assigned At : Social History Observation Description Sex Assigned At Unknown PROBLEMS Problem Type ICD Code Onset Dates Problem Status W/U Status Risk SNOMED Code Notes Problem Colon cancer screening (V76.51) Active confirmed Colon cancer screening (346193485) Problem History of adenomatous polyp of colon (V12.72) Active confirmed History of adenomatous polyp of colon (722704302) Problem Long-term (current) use of antiplatelet/an tithrombotic (V58.63) Active confirmed Long-term current use of antiplatelet drug (483543827516233 ) PLAN OF TREATMENT Future Test Test Name Order Date COLONOSCOPY 05/29/2013 Insurance Providers Payer Name Payer Address Payer Phone Subscriber Number Group Number Insured Name Patient Relationship to Insured Coverage Start Date Coverage End Date [facility] [address] [place] [address] [id number] JESE BLAIR Self - patient is the insured MEDICAL (GENERAL) HISTORY Medical History History ICD Code colonoscopies in 2000, 2003, and 04-01-20--small tubular adenomas removed diverticulosis Denies FL,DM,CVA,Lung disease,renal dise ase Hyperlipidemia HTN Atrial fibrillation--He sees Dr. Burgess at [facility] Surgical History Surgery Date(Month/Year) hernia repair 2009
[2024-07-19 09:39] LABS: MANUAL DIFF FLAG NO
[2024-07-19 11:00] LABS: Basophils Percent Auto 0.4 % (0-2); Eosinophils Absolute Auto 0.3 X10*3/uL (0.0-0.4); Eosinophils Percent Auto 4.6 % (0-4); Hematocrit 38.3 % (42.0-52.0); Hemoglobin 12.7 g/dl (14.0-18.0); Imm Gran Abs Auto 0.01 X10*3/uL (0.00-0.03); Imm Gran Pct Auto 0.2 % (0.0-0.4); Lymphocytes Absolute Auto 2.5 X10*3/uL (1.2-4.9); Lymphocytes Percent Auto 46.1 % (20-40); Mean Corpuscular HGB Conc 33.2 g/dl (31.0-36.0); Mean Corpuscular Hemoglobin 30.2 pg (27.0-33.0); Mean Platelet Volume 10.6 fL (9.4-12.4); Monocytes Absolute Auto 0.7 X10*3/uL (0.1-1.2); Monocytes Percent Auto 12.4 % (2-11); Neutrophils Percent Auto 36.3 % (45-73); Platelet Count 159 X10*3/uL (160-400); Red Blood Count 4.21 X10*6/uL (4.60-5.80); Red Cell Distribution Width 13.1 % (11.0-16.0); White Blood Count 5.5 X10*3/uL (4.8-10.8)
[2024-07-19 11:11] LABS: Appearance Urine Clear; Color Urine Yellow; Glucose Urine UA Negative (Negative); Leukocyte Esterase Urine Trace (Negative); Nitrite Urine Negative (Negative); PH 7.5 (5.0-9.0); UMIC TRIGGER UACC YES; Urine Blood Negative (Negative); Urine Ketones Negative (Negative); Urine Protein Negative (Neg-Trace)
[2024-07-19 11:42] LABS: Bacteria Urine None Seen (None Seen); Hyaline Casts Urine 0-2 /LPF (0-2); RBC Urine 0-2 /HPF (0-2); Squamous Epithelial Cell Urine 0-2 /HPF (0-2); WBC Urine 0-5 /HPF (0-5)
[2024-07-19 12:17] LABS: Alanine Aminotransferase 23 U/L (0-40); Albumin Level 3.8 g/dL (3.5-5.0); Alkaline Phosphatase 41 U/L (39-117); Anion Gap 7 (12-20); Aspartate Amino Transferase 26 U/L (5-37); Bilirubin Total 0.4 mg/dL (0.0-1.0); Blood Urea Nitrogen 25 mg/dL (9-16); Calcium 9.2 mg/dL (8.4-10.2); Carbon Dioxide 30 mmol/L (22-29); Chloride 109 mmol/L (96-108); Cholesterol 155 mg/dL (<200); Estimated Glomerular Filt Rate 57; Glucose Fasting 92 mg/dL (60-99); HDL Cholesterol 35 mg/dL (>40); LDL Cholesterol Calculated 100 mg/dL (<100); Potassium 4.3 mmol/L (3.3-5.1); Sodium 142 mmol/L (135-145); Total Protein 7.5 g/dL (6.5-8.0); Triglycerides 100 mg/dL (<150)
== END 2024-07-19 08:55 | disposition home or self-care (01) ==
LOC: HO.LAB 08:54
PROVIDERS: PCP Internal Medicine; Visit Provider Internal Medicine
DX: E78.00 Pure hypercholesterolemia, unspecified (principal); D64.9 Anemia, unspecified; R30.0 Dysuria
CPT/HCPCS: 36415; 80053; 80061; 81001; 85025

== ENCOUNTER 2024-09-20 14:45 | Outpatient (AMB) | payer MEDICARE, SELFPAY ==
[2024-09-20 14:54] VITALS: BP 130/66; PULSE 60; RESP 18; TEMP 36.2; O2SAT 99; BMI 21.7
--- NOTE | 2024-09-20 14:54 | A.OFFPC_ITS ---
Vital Signs 09/20/24 14:54 Height 5 ft 8 in Weight 143 lb BMI 21.7 BP 130/66 Blood Pressure Location Lt brachial Position Sitting Respiration 18 Pulse 60 Pulse Source Pulse Oximeter Temp 97.1 F Temp Source Temporal Artery Scan Pulse Oximetry (%) 99 Oxygen Delivery Method Room Air Intake Visit Reasons: lower back pain External Relations Director Required: No Accompanied by: Self / Same As Patient Allergies atorvastatin [Lipitor] Allergy (Severe, Verified 09/20/24 15:28) face swelling amlodipine Adverse Reaction (Intermediate, Verified 09/20/24 15:28) dizziness Pradaxa Adverse Reaction (Severe, Uncoded 09/20/24 15:28) weakness, dyspnea Medication List - Last Reconciled 09/20/24 by Veda Ross PA-C acetaminophen ER (Tylenol Arthritis Pain) 1,300 mg (2 x 650 mg) PO Q8H albuterol sulfate 90 mcg/actuation (Ventolin HFA) 2 puffs inhalation Q6H PRN 30 days apixaban (Eliquis) 5 mg PO BID 90 days carvedilol 12.5 mg PO BID cyclobenzaprine 10 mg PO Q8H ferrous sulfate 325 mg PO QAM [id number]-ldd-mhc-yakl-st [id number] mg (Glucosamine Chondroitin PLUS) 1 cap PO DAILY lidocaine 5% 1 patch topical DAILY prednisone 40 mg (2 x 20 mg) PO DAILY 7 days pregabalin 100 mg PO BID 30 days sodium chloride 1,000 mg PO BID tamsulosin 0.8 mg (2 x 0.4 mg) PO BEDTIME 90 days vit C,M-Dd-yjdft-lutein-zeaxan 250-90-40-1 mg (PreserVision AREDS-2) 1 tab PO DAILY Tobacco use date assessed: 09/20/24 Fall risk assessment: No Falls in past year Last assessed Fall Risk: 09/20/24 Dental Screening Dental Screen Date: 09/20/24 Did you have a dental visit in the last 12 months?: No Did you have a dental problem in the last 6 months where you did not have access to dental care?: No Was dental information given to patient?: Patient has dentist [facility] Medical History (Updated 09/20/24 @ 15:29 by Veda Ross PA-C) Right sciatic nerve pain Postherpetic neuralgia Elevated LFTs Supraumbilical hernia Umbilical hernia SIADH (syndrome of inappropriate ADH production) On anticoagulant therapy Umbilical hernia Chest pain of unknown etiology Abdominal wall mass of periumbilical region Gait instability Postoperative intra-abdominal abscess Hyponatremia Anemia Renal insufficiency Anxiety Frequency of urination Benign prostatic hyperplasia with lower urinary tract symptoms Macular degeneration, bilateral Primary osteoarthritis of right knee Lumbar degenerative disc disease Neuropathy Pure hypercholesterolemia Benign essential hypertension Paroxysmal atrial fibrillation Surgical History History of hernia repair H/O umbilical hernia repair Hx of colonoscopy History of appendectomy (~05/2020) Status post arthroscopic surgery of right knee (~03/2016) History of arthroscopy of left knee (~12/2015) History of inguinal hernia repair Family History Mother Hypertension Social History Housing: House Are you a primary neurocritical care physician to a significant other at home: No Do you presently have visiting nurse or other home services: No Alcohol intake: current Alcohol intake frequency: holidays/special occasions only Alcohol type: wine Patient Tobacco Use Status: Former Tobacco user Tobacco use type: Cigarette e-Cigarette/Vaping Use: Never Used Second Hand Smoke Exposure: Yes service: Yes Current occupational status: retired Cognitive needs: No Hearing needs: No Vision needs: Yes (glasses) Questionnaire PHQ-9 Over the last 2 weeks, how often have you been bothered by any of the following problems? 1. Little interest or pleasure in doing things: not at all 2. Feeling down, depressed, or hopeless: not at all 3. Trouble falling or staying asleep, or sleeping too much: not at all 4. Feeling tired or having little energy: not at all 5. Poor appetite or overeating: not at all 6. Feeling bad about yourself - or that you are a failure or have let yourself or your family down: not at all 7. Trouble concentrating on things, such as reading the newspaper or watching television: not at all 8. Moving or speaking so slowly that other people could have noticed. Or the opposite - being so fidgety or restless that you have been moving around a lot more than usual: not at all 9. Thoughts that you would be better off or of hurting yourself in some way: not at all Total score: 0 Depression Screening Interpretation: Negative Depression Screening Done: Yes 45954 - PHQ-9 Billing: Yes Source: Developed by Drs. Cosme Evans, Shea Cowan, Lobo Franks and colleagues, with an educational yasmin from [employer]. Thrive Questionnaire Date Thrive assessed: 09/20/24 I am a: Patient What is your living situation today?: I have a steady place to live Within the past 12 months, did the food you bought not last and you didn't have the money to get more?: Never true Within the past 12 months, did you worry whether your food would run out before you got money to buy more?: Never true Do you have trouble paying for medicines?: No Do you have trouble getting transportation to medical appointments?: No Do you have trouble paying your heating and electricity bill?: No Do you have trouble taking care of your child, family member or friend?: No Do you have trouble with day-to-day activities such as bathing, preparing meals, shopping, managing finances, etc.?: No Are you currently unemployed and looking for a job?: No Are you interested in more education?: No Please select the resources that you would like help with: None Currently or been in a relationship where the following occur: No concerns reported THRIVE Score: 0 AUDIT C Alcohol Use Questionnaire (AUDIT-C) 1. How often do you have a drink containing alcohol?: Never 3. How often do you have six or more drinks on one occasion?: Never Total Score: 0 Score Reviewed/Action Taken: Yes HUSEYIN-7 AMB Questionnaire HUSEYIN-7 Date HUSEYIN - 7 assessed: 09/20/24 Feeling nervous, anxious, or on edge: 0 = Not at all Not being able to stop or control worryin = Not at all Worrying too much about different things: 0 = Not at all Trouble relaxin = Not at all Being so restless that it is hard to sit still: 0 = Not at all Becoming easily annoyed or irritable: 0 = Not at all Feeling afraid as if something awful might happen: 0 = Not at all Total HUSEYIN-7 score (0-4 normal; 5-9 mild; 10-14 moderate; 15-21 severe): 0 Source: Developed by Drs. Cosme Evans, Shea Cowan, Lobo Franks and colleagues, with an educational yasmin from [employer]. HUSEYIN-7 Assessment Billing HUSEYIN-7 Assessment Tool: HUSEYIN-7 Assessment 45720 Physical exam (Primary Care) Vital Signs: Last Vital Signs Temp 97.1 F 09/20/24 14:54 Pulse 60 09/20/24 14:54 Resp 18 09/20/24 14:54 BP 130/66 09/20/24 14:54 Pulse Ox 99 09/20/24 14:54 Oxygen Delivery Method Room Air 09/20/24 14:54 BMI result Body Mass Index 21.7 Tobacco/Smoking Status: Tobacco use Status Tobacco use date assessed 09/20/24 09/20/24 15:03 Patient Tobacco Use Status Former Tobacco user 09/20/24 15:03 Tobacco use type Cigarette 09/20/24 15:03 e-Cigarette/Vaping Use Never Used 09/20/24 15:03 PHQ-9: PHQ-9 Score PHQ-9: Total score 0 09/20/24 15:03 Depression Screening Interpretation: Negative Thrive Assessment: Date of Thrive Assessment Date Thrive assessed 09/20/24 09/20/24 15:03 Currently or been in a relationship where the following occur: No concerns reported Coding Level of Care Code Tele Est Pt Level 3 (88775) Diagnoses Right sciatic nerve pain M54.31 Additional Codes PHQ-9 - 63000 - PHQ-9 Billing: Yes ([id number]) HUSEYIN-7 Assessment Billing - HUSEYIN-7 Assessment Tool: HUSEYIN-7 Assessment 99490 ([id number]) Assessment & Plan Assessment & Plan (1) Right sciatic nerve pain: Code(s): M54.31 - Sciatica, right side Category: Medical Plan: Pt c likely muscular pain, but could be herniated disc. Neuro exam shows no deficits. Not c/w AAA/epidural abscess. Not c/w Pyelo/UTI/kidney stone/spinal fx. Not cauda equina syndrome. Imaging not currently indicated.??DC c meds and f/u. Plan Plan Patient was informed and verbally consented to the use of an ambient scribe for clinic note documentation during this visit. 1. Sciatica Initiate prednisone therapy alongside muscle relaxants and Tylenol Extra Strength to manage pain. Utilize lidocaine patches for local symptom relief, engaging patient with physical therapy to aid in nerve decompression and improve mobility/function. 2. Dehydration Recommendations emphasize appropriate fluid intake to counterbalance any signs of dehydration, supporting concurrent anemia and general health. 3. Chronic Anemia Monitor general condition with specific attention to diet and hydration, considering past interplaying factors with anemia management. Discussion Notes I explained to the patient the sciatica diagnosis and outlined the proposed management plan, emphasizing the use of prednisone and muscle relaxers for pain alleviation. We reviewed non-drug therapies such as specific stretching exercises to open the neural space in the lumbar region. Potential side effects of medications discussed, especially those relieving sciatic pain while considering his ongoing blood thinner usage. Follow-up is advised if symptoms escalate to include fever, urinary dysregulation, or further neurological complications. Moreover, comprehensive advice on hydration was provided, considering prior episodes of dehydration. Medications: New lidocaine 5% leave on most painful area for up to 12 hrs 1 patch topical DAILY 15 ea 1RF prednisone 40 mg (2 x 20 mg) PO DAILY 14 tabs 0RF 7 days cyclobenzaprine 10 mg PO Q8H 30 tabs 1RF acetaminophen ER (Tylenol Arthritis Pain) 1,300 mg (2 x 650 mg) PO Q8H 60 tabs 1RF Patient Instructions: Patient Instructions - Take prescribed prednisone once daily as advised for seven days. - Use the muscle relaxer every eight hours as needed; be cautious when performing tasks requiring alertness. - Apply lidocaine patches as needed; consult if pre-existing symptoms persist. - Stretching exercises as demonstrated to help alleviate nerve pressure. - Ensure adequate daily fluid consumption to maintain hydration. - Contact the office or proceed to an emergency facility if experiencing any marked changes in symptoms such as fever, uncontrolled pain, urinary problems, or unusual neurological findings. - Schedule a follow-up with Dr. Lehman to reassess sciatica and monitor any changes in existing chronic conditions. Scribe Plan - Not visible on output: History of Present Illness The patient is an 83-year-old male presenting with back pain, specifically attributed to suspect sciatic nerve compression. The pain commenced approximately three days before the consultation, with a significant increase in severity without identifiable precipitating trauma. The patient reports sharp, localized pain on the right side of the buttocks, consistent with descriptions of sciatica, although this requires verification through clinical evaluation. He denies any associated symptoms such as numbness or weakness in the legs, changes in bladder or bowel habits, or systemic symptoms like fever or gastrointestinal disturbances. His treatment with [id number] Tylenol has proven insufficient. The patient's medical history includes chronic anemia and dehydration, with satisfactory renal function apart from an elevated blood urea nitrogen level from earlier testing. Blood cholesterol levels are suboptimal, with a low high-density lipoprotein count and satisfactory low-density lipoprotein cholesterol figure. Social History - Lives at home, single, frequently visits a residential. - Reports is residentially placed in a residential. - Expresses proactive approach to healthcare while maintaining regular blood checks at the residential setting. - Indicates no alcohol consumption. - No explicit mention of substance use, smoking, exercise regularity, or dietary habits. Review of Systems - Neurological: Denies numbness or weakness in the legs. - Gastrointestinal: Denies nausea, vomiting, and abdominal pain. Reports difficulty during defecation due to severe pain. - Urinary: Denies hematuria or dysuria, denies incontinence. - Constitutional: Denies fevers. Physical Exam Appearance: Alert. Oriented X3. No acute distress. Head: Normal external exam. Normocephalic. Atraumatic. Eyes: Pupils are equal, round, and reactive to light. Extraocular movements intact. Conjunctiva and sclera normal. Eyelids normal. Ears: External auditory canal normal. Tympanic membranes normal. Throat: Pharynx normal. Uvula midline. Moist mucous membranes. Neck: Normal inspection. Neck supple. Full range of motion. No adenopathy. Thyroid Normal. No meningeal signs. No neck mass noted. Cardiovascular: Normal heart rate and rhythm. Heart sound normal. No murmurs noted. Pulses normal throughout. Respiratory: No respiratory distress. Painless inspiration. Breath sounds normal. No wheezes/rales/rhonchi noted. Chest nontender. No accessory muscle usage noted or decreased air movement noted. Abdomen: Soft and nontender. Bowel sounds normal in all 4 quadrants. No distention noted. No organomegaly noted. No visible injury noted. Back: Tenderness noted in the it Right buttocks region, consistent with sciatic pain. No costovertebral angle tenderness. Full range of motion noted. Skin: Skin warm and dry. Normal skin color. Normal skin turgor. No rashes/lesions/lacerations noted. Extremities: No lower extremity edema. Extremities exhibit normal range of motion. Extremities nontender. Neuro: Oriented X 3. No motor deficit. No sensory deficit. Reflexes normal. Results - Labs: Previous blood work in July indicating mild chronic anemia. - Tests and Diagnostics: Lipid profile from July shows HDL at 35 mg/dL, LDL at 100 mg/dL.
--- OUTSIDE RECORDS SUMMARY | 2024-09-20 16:14 | XMS_ITS | Encounter Summary ---
Author Organization [facility] Address [address] [facility] [address] [place] [address] Phone Care Team Providers Care Convex Grinder Name Role Phone Unavailable Primary Care Provider Unavailabl e Encounter Details Date Type Department Care Team (Late st Contact Info) Description 12/07/2020 Orders Only [facility] [address] [facility] [id number] Ronal Thomas MD [address] [facility] [address] [place] [id number] Hypo-osmolality and hyponatremia; Hypertensive renal disease Social History Tobacco Use Types Packs/Day Years Used Date Smoking Tobacco: Never Alcohol Use Standard Drinks/Week Comments Yes 0 (1 standard drink = 0.6 oz pure alcohol) Alcoholic Drinks/day: 1-2 drinks per day Sex and Gender Information Value Date Recorded Sex Assigned at Not on file Legal Sex Male 4:44 PM EST Gender Identity Not on file Sexual Orientation Not on file documented as of this encounter Plan of Treatment Not on file documented as of this encounter Visit Diagnoses Diagnosis Hypo-osmolality and hyponatremia Hypertensive renal disease documented in this encounter
--- OUTSIDE RECORDS SUMMARY | 2024-09-20 16:14 | XMS_ITS | Encounter Summary ---
Author Organization [facility] Address [address] [place] [address] Phone Care Team Providers Care Environmental Health Physician Name Role Phone Unavailable Primary Care Provider Unavailabl e Reason for Visit * Reason Comments Med Refill Encounter Details Date Type Department Care Team (Late st Contact Info) Description 01/31/2024 Refill [facility] [address] [place] [address] Brock Gardner MD Social History Tobacco Use Types Packs/Day Years [...] documented as of this encounter Visit Diagnoses Not on filedocumented in this encounter
--- OUTSIDE RECORDS SUMMARY | 2024-09-20 16:14 | XMS_ITS | Encounter Summary ---
Author Organization [facility] Address [address] [place] [address] Phone Care Team Providers Care Body Corporate Manager Name Role Phone Unavailable Primary Care Provider Unavailabl e Reason for Visit * Reason Comments Med Refill Encounter Details Date Type Department Care Team (Late st Contact Info) Description 01/25/2024 Refill [facility] [address] [place] [address] Brock Gardner MD Social History [...]
--- OUTSIDE RECORDS SUMMARY | 2024-09-20 16:14 | XMS_ITS | Patient Health Record ---
Author Organization [facility] Address [address] [place] [address] Care Team Providers Care Bell Captain Name Role Phone Dominik MANUEL, Daniel Primary Care Provider Cosme Viera [phone] Allergies Allergen (clinical drug ingredient) Drug/Non Drug Allergy documented on EMR Reaction Allergy Type Onset Date Status atorvastatin Lipitor Unknown Drug Allergy Acti ve Reason For Referral No Information Medications Medication SIG (Take, Route, Fr equency, Duration) Notes Start Date End Date Status Atenolol 50 mg Activ e Chlorothiazide 250 mg Active Multaq 400 mg Active Lutein 40 mg Active Vitamin A 1,000 mg A ctive PreserVision/Lutein Active Lisinopril 40 mg Act kennedy Crestor 10 mg Active Xarelto Active MoviPrep 100 GM as directed Orally a s directed for 1 dose 05/29/2013 Active Problems Problem Type SNOMED Code ICD Code Onset Dates Problem Status W/U Status Risk Notes Problem Long-term current use of antiplatelet drug ([id number] ) Long-term (current) use of antiplatelet/an tithrombotic (V58.63) Active confirmed Problem Colon cancer screening (815299401) Colon cancer screening (V76.51) Active confirmed Problem History of adenomatous polyp of colon (660276137) History of adenomatous polyp of colon (V12.72) Active confirmed Plan Of Treatment Future Test Test Name Order Date COLONOSCOPY 05/29/2013 Insurance Providers Payer Name Payer Address Payer Phone Subscriber Number Group Number Insured Name Patient Relationship to Insured Coverage Start Date Coverage End Date [facility] [address] [place] [address] [id number] JESE [place] Self - patient is the insured Medical (General) History Medical History History ICD Code colonoscopies in 2000, 2003, and 04-01-20--small tubular adenomas removed diverticulosis Denies MS,DM,CVA,Lung disease,renal dise ase Hyperlipidemia HTN Atrial fibrillation--He sees Dr. Burgess at [facility] Surgical History Surgery Date(Month/Year) hernia repair 2009
--- OUTSIDE RECORDS SUMMARY | 2024-09-20 16:14 | XMS_ITS | Clinical Summary ---
Author Organization [facility] Address [address] [place] [address] Care Team Providers Care Tap And Die Maker Technician Name Role Phone Unavailable Primary Care Provider Unavailabl e Allergies Active Allergy Reactions Criticality Noted Date Comments Atorvastatin Other (see comments) 10/23/2020 Dabigatran Etexilate Mesylate Other (see comments) 10/23/2020 Medications rivaroxaban (XARELTO) 20 MG tablet Take 1 tablet by mouth every night Active rosuvastatin (CRESTOR) 10 MG tablet 1 tablet at bed time 10/17/2014 Active terazosin (HYTRIN) 5 MG capsule Take 1 capsule by mouth at bed time Active Multiple Vitamins-Minera ls (CENTRUM ADULTS PO) Take 1 tablet by mouth 1 (one) time each day Active ferrous sulfate 325 (65 Fe) MG tablet TAKE 1 TABLET BY MOUTH EVERY MORNING WITH ORANGE JUICE 10/15/2020 Active oxyCODONE-aceta minophen (PERCOCET) 5-325 MG per tablet 11/03/2020 Active torsemide (DEMADEX) 20 MG tablet TAKE 1 TABLET BY MOUTH EVERY DAY 90 tablet 1 01/15/2021 Active carvedilol (COREG) 12.5 MG tablet 04/24/2021 Active sodium chloride 1 g tablet TAKE 1 TABLET BY MOUTH THREE TIMES A DAY 90 tablet 11 10/26/2021 Active Active Problems Problem Noted Date Diagnosed Date Paroxysmal atrial fibrillation 05/31/2022 Benign essential hypertension 05/31/2022 Chronic kidney disease stage 3 10/23/2020 Chronic systolic heart failure 10/23/2020 Hypertensive renal disease 10/23/2020 Hypo-osmolality and hyponatremia 10/23/2020 Family History Medical History Relation Comments Hypertension Mother Relation Status Comments Father Mother Social History Tobacco Use Types Packs/Day Years Used Date Smoking Tobacco: Never Alcohol Use Standard Drinks/Week Comments Yes 0 (1 standard drink = 0.6 oz pure alcohol) Alcoholic Drinks/day: 1-2 drinks per day Sex and Gender Information Value Date Recorded Sex Assigned at Not on file Legal Sex Male 4:44 PM EST Gender Identity Not on file Sexual Orientation Not on file Last Filed Vital Signs Vital Sign Reading Time Taken Comments Blood Pressure 142/81 05/31/2022 12:57 PM EST Pulse 81 05/31/2022 12:57 PM EST Temperature - - Respiratory Rate - - Oxygen Saturation 97% 05/31/2022 12:57 PM EST Inhaled Oxygen Concentration - - Weight 64.1 kg (141 lb 6.4 oz) 05/31/2022 12:57 PM EST Height 172.7 cm (5' 8 ) 07/20/2020 12:00 PM EST Body Mass Index 21.5 07/20/2020 12:00 PM EST Plan of Treatment Health Maintenance Due Date Last Done Comments Pneumococcal Vaccine: 65+ Ye ars (1 of 2 - PCV) 10/24/1946 Influenza Vaccine (#1) 2024 Hepatitis B Vaccine Aged Out No longe r eligible based on patient's age to complete this topic Insurance [facility]
== END 2024-09-20 15:18 | disposition home or self-care (01) ==
LOC: HO.HMCH 14:46
PROVIDERS: PCP Internal Medicine; Visit Provider Physician Assistant Medical
DX: M54.31 Sciatica, right side (principal)

== ENCOUNTER → 2024-09-20 14:45 | Outpatient (BNVA) | payer MEDICARE, SELFPAY | PROVIDERS: PCP Internal Medicine; Visit Provider Physician Assistant Medical | DX: M54.31 Sciatica, right side (principal) | CPT/HCPCS: 96127; 99212 ==

== ENCOUNTER 2025-02-12 09:07 | Outpatient (AMB) | payer MEDICARE, SELFPAY ==
--- NOTE | 2025-02-12 09:13 | A.OFFPC_ITS ---
Vital Signs 02/12/25 09:15 02/12/25 09:41 Height 5 ft 8 in Weight 138 lb 4 oz BMI 21.0 BP 100/54 L 116/60 Blood Pressure Location Lt brachial Lt brachial Position Sitting Sitting Pulse 71 Pulse Source Pulse Oximeter Temp 97.3 F Temp Source Temporal Artery Scan Pulse Oximetry (%) 97 Oxygen Delivery Method Room Air Intake Visit Reasons: Follow up Intake Note: Patient is here to follow up on Asthma, BPH, LDDD, HTN. Community Health Education Coordinator Required: No Bolt Sorter: Not Required per policy Accompanied by: Self / Same As Patient Allergies atorvastatin (Lipitor) Allergy (Severe, Verified 02/12/25 09:30) face swelling amlodipine Adverse Reaction (Intermediate, Verified 02/12/25 09:30) dizziness Pradaxa Adverse Reaction (Severe, Uncoded 02/12/25 09:30) weakness, dyspnea Medication List - Last Reconciled 02/12/25 by Daniel Lehman MD acetaminophen ER (Tylenol Arthritis Pain) 1,300 mg (2 x 650 mg) PO Q8H albuterol sulfate 90 mcg/actuation (Ventolin HFA) 2 puffs inhalation Q6H PRN 30 days apixaban (Eliquis) 5 mg PO BID 90 days carvedilol 12.5 mg PO BID cyclobenzaprine 10 mg PO Q8H ferrous sulfate 325 mg PO QAM zdka-rfzwp-oa6-evc-zsd-xknt-st [id number] mg (Glucosamine Chondroitin PLUS) 1 cap PO DAILY lidocaine 5% 1 patch topical DAILY pregabalin 100 mg PO BID 30 days sodium chloride 1,000 mg PO BID tamsulosin 0.8 mg (2 x 0.4 mg) PO BEDTIME 90 days vit C,O-Nx-kzyxe-lutein-zeaxan 250-90-40-1 mg (PreserVision AREDS-2) 1 tab PO DAILY Tobacco use date assessed: 02/12/25 Fall risk assessment: No Falls in past year Last assessed Fall Risk: 02/12/25 Dental Screening Dental Screen Date: 09/20/24 HPI Follow up HPI Details Patient comes in today for his follow up visit - was last seen by me in March 2024 States that he presently feels okay He was discharged from [facility] last week - was admitted there for about a week due to increasing difficulty walking He was apparently worked up and was suspected to have normal pressure hydrocephalus although per his discharge summary, this was ruled out as his opening pressure was within normal limits (?) on his lumbar puncture and his gait did not improve much following his LP A repeat brain MRI done on 01/28/2025 revealed (+) 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, raising suspicion for NPH vs a central predominant atrophic pattern Patient states that he was advised to follow up with his PCP CELESTINE upon his discharge from the hospital and was advised that he may require a shunt to be placed at some point if his condition progresses Patient also noted that his blood pressure was lower than usual for him when it was checked here earlier Reports that he sometimes feels dizzy briefly when he gets up or moves around too quickly but otherwise has no significant issues with headaches or dizziness He denies any exertional chest pains, no increased SOB No nausea/vomiting, no abdominal pain No change in bowel habits noted He had extensive labs done when he was at [facility] over the past couple of weeks and has no other labs done since his discharge last week [facility] Medical History (Updated 02/12/25 @ 10:44 by Daniel Lehman MD) Normal pressure hydrocephalus Right sciatic nerve pain Postherpetic neuralgia Elevated LFTs Supraumbilical hernia Umbilical hernia SIADH (syndrome of inappropriate ADH production) On anticoagulant therapy Umbilical hernia Abdominal wall mass of periumbilical region Gait instability Postoperative intra-abdominal abscess Hyponatremia Anemia Renal insufficiency Anxiety Frequency of urination Benign prostatic hyperplasia with lower urinary tract symptoms Macular degeneration, bilateral Primary osteoarthritis of right knee Lumbar degenerative disc disease Neuropathy Pure hypercholesterolemia Benign essential hypertension Paroxysmal atrial fibrillation Surgical History History of hernia repair H/O umbilical hernia repair Hx of colonoscopy History of appendectomy (~05/2020) Status post arthroscopic surgery of right knee (~03/2016) History of arthroscopy of left knee (~12/2015) History of inguinal hernia repair Family History Mother Hypertension Social History Housing: House Are you a primary elderly caregiver to a significant other at home: No Do you presently have visiting nurse or other home services: No Alcohol intake: current Alcohol intake frequency: holidays/special occasions only Alcohol type: wine Patient Tobacco Use Status: Former Tobacco user Tobacco use type: Cigarette e-Cigarette/Vaping Use: Never Used Second Hand Smoke Exposure: Yes service: Yes Current occupational status: retired Cognitive needs: Yes (Walker) Hearing needs: No Vision needs: Yes (glasses) Questionnaire PHQ-9 Over the last 2 weeks, how often have you been bothered by any of the following problems? 1. Little interest or pleasure in doing things: not at all 2. Feeling down, depressed, or hopeless: not at all 3. Trouble falling or staying asleep, or sleeping too much: not at all 4. Feeling tired or having little energy: not at all 5. Poor appetite or overeating: not at all 6. Feeling bad about yourself - or that you are a failure or have let yourself or your family down: not at all 7. Trouble concentrating on things, such as reading the newspaper or watching television: not at all 8. Moving or speaking so slowly that other people could have noticed. Or the opposite - being so fidgety or restless that you have been moving around a lot more than usual: not at all 9. Thoughts that you would be better off or of hurting yourself in some way: not at all Total score: 0 Depression Screening Interpretation: Negative Depression Screening Done: Yes 10120 - PHQ-9 Billing: Yes Source: Developed by Drs. Cosme Evans, hSea Cowan, Lobo Franks and colleagues, with an educational yasmin from [employer]. Thrive Questionnaire Date Thrive assessed: 09/20/24 I am a: Patient What is your living situation today?: I have a steady place to live Within the past 12 months, did the food you bought not last and you didn't have the money to get more?: Never true Within the past 12 months, did you worry whether your food would run out before you got money to buy more?: Never true Do you have trouble paying for medicines?: No Do you have trouble getting transportation to medical appointments?: No Do you have trouble paying your heating and electricity bill?: No Do you have trouble taking care of your child, family member or friend?: No Do you have trouble with day-to-day activities such as bathing, preparing meals, shopping, managing finances, etc.?: No Are you currently unemployed and looking for a job?: No Are you interested in more education?: No Please select the resources that you would like help with: None Currently or been in a relationship where the following occur: No concerns reported THRIVE Score: 0 AUDIT C Alcohol Use Questionnaire (AUDIT-C) 1. How often do you have a drink containing alcohol?: Never Total Score: 0 Score Reviewed/Action Taken: Yes HUSEYIN-7 AMB Questionnaire HUSEYIN-7 Date HUSEYIN - 7 assessed: 09/20/24 Feeling nervous, anxious, or on edge: 0 = Not at all Not being able to stop or control worryin = Not at all Worrying too much about different things: 0 = Not at all Trouble relaxin = Not at all Being so restless that it is hard to sit still: 0 = Not at all Becoming easily annoyed or irritable: 0 = Not at all Feeling afraid as if something awful might happen: 0 = Not at all Total HUSEYIN-7 score (0-4 normal; 5-9 mild; 10-14 moderate; 15-21 severe): 0 Source: Developed by Drs. Cosme Evans, Shea Cowan, Lobo Franks and colleagues, with an educational yasmin from [employer]. Review of Systems Const Denies chills, Reports fatigue, Denies fever(s) and Denies headache(s) ENT Denies dysphagia, Reports dizziness (on and off, usually with rapid changes in position), Denies otalgia, Denies headache(s), Denies neck pain, Denies odynophagia and Denies sore throat Card Denies chest pain, Denies irregular heart rhythm, Denies palpitations and Reports dyspnea on exertion (mild) Resp Denies chest congestion, Denies cough, Reports dyspnea on exertion (mild) and Denies wheezing GI Denies abdominal pain, Denies constipation, Denies dysphagia, Denies heartburn, Denies diarrhea, Denies nausea, Denies odynophagia and Denies vomiting Denies difficulty urinating, Denies dysuria, Denies nocturia and Denies urinary frequency Musc Reports abnormal gait (unsteady gait), Reports back pain (over the lower back - chronic), Reports arthralgias (right shoulder) and Denies neck pain Skin/Breast Denies rash Neuro Reports abnormal gait (unsteady gait), Reports dizziness (on and off, usually with rapid changes in position), Denies headache(s) and Denies paresthesias Endo Reports fatigue and Denies palpitations Aller/Immun Denies wheezing Physical exam (Primary Care) Vital Signs: Last Vital Signs Temp 97.3 F 02/12/25 09:15 Pulse 71 02/12/25 09:15 BP 100/54 L 02/12/25 09:15 Pulse Ox 97 02/12/25 09:15 Oxygen Delivery Method Room Air 02/12/25 09:15 BMI result Body Mass Index 21.0 Tobacco/Smoking Status: Tobacco use Status Tobacco use date assessed 02/12/25 02/12/25 09:16 Patient Tobacco Use Status Former Tobacco user 02/12/25 09:16 Tobacco use type Cigarette 02/12/25 09:16 e-Cigarette/Vaping Use Never Used 02/12/25 09:16 PHQ-9: PHQ-9 Score PHQ-9: Total score 0 02/12/25 09:16 Depression Screening Interpretation: Negative Thrive Assessment: Date of Thrive Assessment Date Thrive assessed 09/20/24 02/12/25 09:16 Currently or been in a relationship where the following occur: No concerns reported Const General: no acute distress and alert Limitations: ambulation with walker HENMT Ears: TM's normal bilaterally and EAC's normal Throat: Yes posterior oropharynx normal and Yes tonsils normal (no TP congestion) Neck Neck: Yes supple and No lymphadenopathy Thyroid: Thyroid normal Resp Auscultation: clear to auscultation bilaterally, no crackles, no rales and no wheezes Cardio Rate: regular rate Rhythm: regular rhythm Heart sounds: no murmurs GI Palpation (GI): Soft to palpation and nontender Auscultation: normal bowel sounds General: Yes no CVA tenderness Back/Spine/Pelvis Back: no CVA tenderness Thoracic/Lumbar Spine: lumbar spinal tenderness (mild) Skin Rashes: no rashes Extrem General: Yes no clubbing, cyanosis or edema Coding Level of Care Code Est Pt Level 4 (50303) Diagnoses Normal pressure hydrocephalus G91.2 Movement disorder G25.9 Paroxysmal atrial fibrillation I48.0 Benign essential hypertension I10 Pure hypercholesterolemia E78.00 SIADH (syndrome of inappropriate ADH production) E22.2 Degeneration of intervertebral disc of lumbar region with discogenic back pain M51.360 Disc-related pain type: discogenic back pain only Primary osteoarthritis of right knee M17.11 Primary osteoarthritis, left shoulder M19.012 Postherpetic neuralgia B02.29 Anemia due to other cause, not classified D64.89 Anemia type: other cause Other causes of anemia: other cause, not classified Benign prostatic hyperplasia with urinary frequency N40.1; R35.0 Lower urinary tract symptom detail: urinary frequency Macular degeneration of both eyes, unspecified type H35.30 Macular degeneration type: unspecified type Anxiety F41.9 Additional Codes PHQ-9 - 18735 - PHQ-9 Billing: Yes ([id number]) Assessment & Plan Assessment & Plan (1) Normal pressure hydrocephalus: Code(s): G91.2 - (Idiopathic) normal pressure hydrocephalus Category: Medical Plan: He was apparently worked up at [facility] as he was suspected to have normal pressure hydrocephalus although per his discharge summary, this was ruled out as his opening pressure was within normal limits (?) on his lumbar puncture and his gait did not improve much following his LP A repeat brain MRI done on 01/28/2025 revealed (+) 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, raising suspicion for NPH vs a central predominant atrophic pattern Will refer him now to neurology for further evaluation and recommendations (2) Movement disorder: Code(s): G25.9 - Extrapyramidal and movement disorder, unspecified Category: Medical Plan: Patient will be referred to neurology for further evaluation Will consider referring him to a movement disorder clinic if his symptoms persist but will wait and see what neurology recommends first (3) Paroxysmal atrial fibrillation: Comment: Sees Dr Meraz Code(s): I48.0 - Paroxysmal atrial fibrillation Category: Medical Plan: Patient currently remains in sinus rhythm today Continue Eliquis 5 mg BID for thromboembolism prophylaxis Continue Carvedilol 12.5 mg BID; he was previously on Diltiazem for rate and rhythm control but this was discontinued due to frequent low BP readings Follow-up with cardiology as scheduled (4) Benign essential hypertension: Code(s): I10 - Essential (primary) hypertension Category: Medical Plan: Reinforced low sodium diet - goal is systolic BP of at least 140 mm or less although he appears to be experiencing some symptoms suggestive or orthostasis lately Continue Carvedilol 12.5 mg BID Patient is reminded to continue monitoring his blood pressure regularly (5) Pure hypercholesterolemia: Code(s): E78.00 - Pure hypercholesterolemia, unspecified Category: Medical Plan: Reinforced low cholesterol diet He used to take Rosuvastatin but this was apparently discontinued some time ago Will have patient recheck his labs and fasting lipids in 3 months for follow up (6) SIADH (syndrome of inappropriate ADH production): Code(s): E22.2 - Syndrome of inappropriate secretion of antidiuretic hormone Category: Medical Plan: He had hyponatremia in the past but his serum sodium has been normal on his recent labs over the past year Continue Sodium Chloride tablets 1000 mg BID Follow-up with nephrology as scheduled (7) Lumbar degenerative disc disease: Code(s): M51.36 - Other intervertebral disc degeneration, lumbar region Category: Medical Qualifiers: Disc-related pain type: discogenic back pain only Qualified Code(s): M51.360 - Other intervertebral disc degeneration, lumbar region with discogenic back pain only Plan: Reinforced activity and weight-lifting restrictions He was on Tramadol 50 mg Q HS PRN for increased pain in the past but he stopped Tramadol a while back and has only been taking OTC meds (Acetaminophen) PRN for the past few months States that he also uses some OTC muscle rubs as needed Have offered to refer him to pain management but he declined (8) Primary osteoarthritis of right knee: Code(s): M17.11 - Unilateral primary osteoarthritis, right knee Category: Medical Plan: Follow up with orthopedics as scheduled (9) Primary osteoarthritis, left shoulder: Code(s): M19.012 - Primary osteoarthritis, left shoulder Category: Medical Plan: Left shoulder x-rays done a couple of years ago revealed (+) mild glenohumeral joint osteoarthritis and mild acromioclavicular arthropathy If his shoulder symptoms get worse, will refer him to orthopedics for further management (10) Postherpetic neuralgia: Code(s): B02.29 - Other postherpetic nervous system involvement Category: Medical Plan: Continue Pregabalin 100 mg BID Patient states that he still has some lingering on and off pain and discomfort around his left shoulder and left upper arm area where he had most of his shingles lesion break out a couple of years ago (11) Anemia: Code(s): D64.9 - Anemia, unspecified Category: Medical Qualifiers: Anemia type: other cause Other causes of anemia: other cause, not classified Qualified Code(s): D64.89 - Other specified anemias Plan: Improving - continue Ferrous Sulfate 325 mg QD Will continue to monitor his CBC regularly (12) Benign prostatic hyperplasia with lower urinary tract symptoms: Code(s): N40.1 - Benign prostatic hyperplasia with lower urinary tract symptoms Category: Medical Qualifiers: Lower urinary tract symptom detail: urinary frequency Qualified Code(s): N40.1 - Benign prostatic hyperplasia with lower urinary tract symptoms; R35.0 - Frequency of micturition Plan: Continue Tamsulosin 0.8 mg QD Follow-up with urology (Dr. Melara) as scheduled (13) Macular degeneration, bilateral: Code(s): H35.30 - Unspecified macular degeneration Category: Medical Qualifiers: Macular degeneration type: unspecified type Qualified Code(s): H35.30 - Unspecified macular degeneration Plan: Follow up with ophthalmology as scheduled (14) Anxiety: Code(s): F41.9 - Anxiety disorder, unspecified Category: Medical Plan: Patient states that he has been doing well lately without need for any Rx for anxiety Plan Follow up in 3 months Orders: Orders Comprehensive [place]. Panel Fast 3 Months E78.00 - Pure hypercholesterolemia, unspecified Lipid Panel 3 Months E78.00 - Pure hypercholesterolemia, unspecified Vitamin D 25-OH Total 3 Months E55.9 - Vitamin D deficiency, unspecified Complete Blood Count Auto Diff 3 Months D64.9 - Anemia, unspecified TSH reflex Free T4 3 Months E78.00 - Pure hypercholesterolemia, unspecified UA CC w/rflx Micro + Cult 3 Months R30.0 - Dysuria Vitamin B12 and Folate 3 Months E53.8 - Deficiency of other specified B group vitamins Referrals Neurology Referral G25.9 - Extrapyramidal and movement disorder, unspecified, G91.2 - (Idiopathic) normal pressure hydrocephalus
[2025-02-12 09:15] VITALS: BP 100/54; PULSE 71; TEMP 36.3; O2SAT 97; BMI 21.0
--- OUTSIDE RECORDS SUMMARY | 2025-02-12 09:26 | XMS_ITS | Encounter Summary ---
Author Organization [facility] Address [address] [place] [address] Phone Care Team Providers Care Casting And Curing Operator Name Role Phone Unavailable Primary Care Provider Unavailabl e Reason for Visit * Reason Comments Med Refill Encounter Details Date Type Department Care Team (Late st Contact Info) Description 01/25/2024 Refill [facility] [address] [place] [address] Brock Gardner MD Social History [...]
--- OUTSIDE RECORDS SUMMARY | 2025-02-12 09:26 | XMS_ITS | Patient Health Record ---
Author Organization [facility] Address [address] [place] [address] Care Team Providers Care Liquor Grinding Mill Operator Name Role Phone Dominik MANUEL, Daniel Primary Care Provider Cosme Viera [phone] Allergies Allergen (clinical drug ingredient) Drug/Non Drug [...] Problem Long-term current use of antiplatelet drug ([id number] ) Long-term (current) use of antiplatelet/an tithrombotic (V58.63) Active confirmed Problem Colon cancer screening ([id number]) Colon cancer screening (V76.51) Active confirmed Problem History of adenomatous polyp of colon (043511499) History of adenomatous polyp of colon (V12.72) Active confirmed Plan Of Treatment Future Test Test Name Order Date COLONOSCOPY 05/29/2013 Insurance Providers Payer Name Payer Address Payer Phone Subscriber Number Group Number Insured Name Patient Relationship to Insured Coverage Start Date Coverage End Date [facility] [address] [place] [address] [id number] JESE BLAIR Self - patient is the insured Medical (General) History Medical History History ICD Code colonoscopies in 2000, 2003, and 04-01-20--small tubular adenomas removed diverticulosis Denies [place],DM,CVA,Lung disease,renal dise ase Hyperlipidemia HTN Atrial fibrillation--He sees Dr. Burgess at [facility] Surgical History Surgery Date(Month/Year) hernia repair 2009
[2025-02-12 09:41] VITALS: BP 116/60
== END 2025-02-12 09:50 | disposition home or self-care (01) ==
LOC: HO.HMCH 09:08
PROVIDERS: PCP Internal Medicine; Visit Provider Internal Medicine
DX: G91.2 (Idiopathic) normal pressure hydrocephalus (principal); G25.9 Extrapyramidal and movement disorder, unspecified; I48.0 Paroxysmal atrial fibrillation; I10 Essential (primary) hypertension; E78.00 Pure hypercholesterolemia, unspecified; E22.2 Syndrome of inappropriate secretion of antidiuretic hormone; M51.360 Other intervertebral disc degeneration, lumbar region with discogenic back pain only; M17.11 Unilateral primary osteoarthritis, right knee; M19.012 Primary osteoarthritis, left shoulder; B02.29 Other postherpetic nervous system involvement; D64.89 Other specified anemias; N40.1 Benign prostatic hyperplasia with lower urinary tract symptoms; R35.0 Frequency of micturition; H35.30 Unspecified macular degeneration; F41.9 Anxiety disorder, unspecified

== ENCOUNTER → 2025-02-12 09:07 | Outpatient (BNVA) | payer MEDICARE, SELFPAY | PROVIDERS: PCP Internal Medicine; Visit Provider Internal Medicine | DX: I48.0 Paroxysmal atrial fibrillation (principal); G91.2 (Idiopathic) normal pressure hydrocephalus; G25.9 Extrapyramidal and movement disorder, unspecified; J45.909 Unspecified asthma, uncomplicated; I10 Essential (primary) hypertension; E78.00 Pure hypercholesterolemia, unspecified; E22.2 Syndrome of inappropriate secretion of antidiuretic hormone; M51.360 Other intervertebral disc degeneration, lumbar region with discogenic back pain only; M17.11 Unilateral primary osteoarthritis, right knee; M19.012 Primary osteoarthritis, left shoulder; B02.29 Other postherpetic nervous system involvement; D64.89 Other specified anemias; N40.1 Benign prostatic hyperplasia with lower urinary tract symptoms; R35.0 Frequency of micturition; H35.30 Unspecified macular degeneration; F41.9 Anxiety disorder, unspecified; E55.9 Vitamin D deficiency, unspecified; D64.9 Anemia, unspecified; R30.0 Dysuria; E53.8 Deficiency of other specified B group vitamins | CPT/HCPCS: 96127; 99212 ==